=== PATIENT | female | born 1990 | race Caucasian/White ===

== ENCOUNTER 2017-09-06 11:43 | Outpatient (CLI) | payer MEDICAID ==
[2017-09-06 19:17] LABS: BASOPHILS % (AUTO) 0.2 %; EOSINOPHILS # (AUTO) 0.1 10^3/uL (0.0-0.7); EOSINOPHILS % (AUTO) 1.8 %; HGB - HEMOGLOBIN 13.9 g/dL (12.0-16.0); LYMPHOCYTES # (AUTO) 1.8 10^3/uL (1.5-3.5); LYMPHOCYTES % (AUTO) 37.5 %; MEAN CORPUSCULAR HEMOGLOBIN 27.9 pg (27.0-31.0); MEAN CORPUSCULAR HGB CONC 32.9 g/dL (32.0-36.0); MEAN CORPUSCULAR VOLUME 84.9 fL (81.0-99.0); MEAN PLATELET VOLUME 8.7 fL (7.9-10.8); MONOCYTES # (AUTO) 0.3 10^3/uL (0.0-1.0); MONOCYTES % (AUTO) 6.3 %; NEUTROPHILS # (AUTO) 2.6 10^3/uL (1.5-6.6); NEUTROPHILS % (AUTO) 54.2 %; PLT - PLATELET COUNT 246 10^3/uL (130-450); RED BLOOD COUNT 4.97 10^6/uL (4.20-5.40); RED CELL DISTRIBUTION WIDTH 13.4 % (12.0-15.0); WHITE BLOOD COUNT 4.8 x10^3/uL (4.8-10.8)
[2017-09-06 19:23] LABS: HB2 TOTAL 15.5 g/dL; HEMOGLOBIN A1C 1.44 g/dL; HEMOGLOBIN A1C % 10.7 % (4.6-6.2)
[2017-09-06 19:24] LABS: ALBUMIN 3.6 g/dL (3.2-5.5); ALBUMIN/GLOBULIN RATIO 1.1 (1.0-2.2); ALKALINE PHOSPHATASE 73 IU/L (42-121); ALT ALANINE AMINOTRANSFERASE 24 IU/L (10-60); AST ASPARTATE AMINOTRANSFERASE 24 IU/L (10-42); BILIRUBIN,TOTAL 0.6 mg/dL (0.2-1.0); BUN - BLOOD UREA NITROGEN 12 mg/dL (6-20); CALCIUM 8.6 mg/dL (8.5-10.3); CARBON DIOXIDE - CO2 23 mmol/L (21-32); CHLORIDE 102 mmol/L (101-111); CHOL/HDL RATIO 4.5 (<4.4); CHOLESTEROL 191 mg/dL; CREATININE 0.4 mg/dL (0.4-1.0); GFR - MDRD 190 (>89); GLUCOSE 247 mg/dL (70-100); HDL CHOLESTEROL 42 mg/dL; LDL CHOLESTEROL,CALCULATED 116 mg/dL; LDL/HDL RATIO 2.8 (<4.4); SODIUM 133 mmol/L (135-145); TOTAL PROTEIN 6.9 g/dL (6.7-8.2); VLDL CHOLESTEROL 33 mg/dL
== END 2017-09-06 11:44 | disposition home or self-care (01) ==
LOC: LAB.N 11:43
PROVIDERS: ATTEND Nurse Practitioner Gerontology
DX: Z13.9 Encounter for screening, unspecified (principal); E66.01 Morbid (severe) obesity due to excess calories
CPT/HCPCS: 36415; 80053; 80061; 82043; 83036; 83721; 84443; 85025

== ENCOUNTER 2017-12-04 02:05 | Emergency (ER) | payer MEDICAID ==
--- NOTE | 2017-12-04 02:08 | ED Physician Documentation ---
PD HPI LOWER EXT INJURY - Stated complaint Stated Complaint: FALL,R ANKLE PX - History obtained from History obtained from: Patient - History of Present Illness PD HPI LOW EXT INJURY LOCATION: Right, Lower leg, Ankle Type of injury: Fall (slipped on last few steps of stairway and fell, twisting right ankle and striking upper torrez on right.) Where injury occurred: Home Timing - onset: Today Timing - details: Abrupt onset, Still present Worsened by: Moving, Palpating Associated symptoms: Swelling. No: Weakness, Numbness Contributing factors: No: Anticoagulated Similar symptoms before: Has not had sx before Recently seen: Not recently seen Review of Systems Constitutional: denies: Fever Nose: denies: Rhinorrhea / runny nose, Congestion Throat: denies: Sore throat Respiratory: denies: Cough GI: denies: Abdominal Pain, Nausea, Vomiting Musculoskeletal: reports: Other (pain at right knee and upper lower leg) Neurologic: denies: Focal weakness, Numbness, Altered mental status, Headache, Head injury PD PAST MEDICAL HISTORY - Past Medical History Cardiovascular: None Respiratory: None Endocrine/Autoimmune: Type 2 diabetes Musculoskeletal: None - Past Surgical History Past 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 - Present Medications Home Medications: Ambulatory Orders Medication Instructions Recorded Confirmed Chlorhexidine Gluconate [Hibiclens] 10 ml TP DAILY #473 ml 08/14/15 Hydrocodone/Acetaminophen [[place] 1 each PO Q6H PRN #20 tablet 08/14/15 5-325 Tablet] Insulin Glargine,Hum.rec.anlog 08/14/15 08/14/15 [Lantus Solostar] Insulin Glargine,Hum.rec.anlog 15 unit SQ DAILY #1 bottle 08/14/15 [Lantus] Insulin Lispro [Humalog] 15 unit SUBQ TID #1 bottle 08/14/15 Sulfamethoxazole/Trimethoprim 1 each PO BID #14 tablet 08/14/15 [Bactrim Ds Tablet] Naproxen 375 mg PO BID #20 tablet 12/04/17 Tramadol HCl 50 mg PO Q6H PRN #20 tablet 12/04/17 - Allergies Allergies/Adverse Reactions: Allergies Allergy/AdvReac Type Severity Reaction Status Date / Time cefaclor [From [facility]] Allergy Unknown Verified 12/04/17 02:16 Penicillins Allergy Unknown Verified 12/04/17 02:16 - Social History Does the pt smoke?: No Smoking Status: Never smoker Does the pt drink ETOH?: Yes Does the pt have substance abuse?: No - Immunizations Immunizations are current?: Yes PD ED PE NORMAL - Vitals Vital signs reviewed: Yes - General General: Alert and oriented X 3, No acute distress, Well developed/nourished - Back Back: No CVA TTP, No spinal TTP - Derm Derm: Normal color, Warm and dry, No rash - Extremities Extremities: Other (right upper torrez with local tnedrness and bruising. The knee is tender anteriorly and does not have effusion nor obvious deformity. Ligament testing is limited due to pain but no gross laxity. ) - Neuro Neuro: Alert and oriented X 3, No motor deficit, No sensory deficit, Normal speech Results - Vitals Vitals: Oxygen O2 Source Room air - Rads (name of study) tib/fib and ankle right Radiology: Prelim report reviewed, EMP read contemporaneously (no fractures) PD MEDICAL DECISION MAKING - ED course Complexity details: reviewed results, considered differential, d/w patient Departure - Departure Disposition: 01 Home, Self Care Clinical Impression: Fall down steps Qualifiers: Encounter type: initial encounter Qualified Code(s): W10.8XXA - Fall (on) (from ) other stairs and steps, initial encounter Contusion, lower leg Qualifiers: Encounter type: initial encounter Laterality: right Qualified Code(s): S80.11XA - Contusion of right lower leg, initial encounter Ankle sprain Qualifiers: Encounter type: initial encounter Involved ligament of ankle: other ligament Laterality: right Qualified Code(s): S93.491A - Sprain of other ligament of right ankle, initial encounter Condition: Stable Record reviewed to determine appropriate education?: Yes Instructions: ED Sprain Ankle Follow-Up: Karla Hendrickson ARNP [Primary Care Provider] - Prescriptions: Naproxen 375 mg PO BID #20 tablet Tramadol HCl 50 mg PO Q6H PRN #20 tablet PRN Reason: Pain Comments: Us the ankle brace when up and around for the next couple of weeks until fully improved. Crutches initially to help with partial weightbearing. Progress weightbearing as able. I do not see any fractures on x-ray. The ligament and muscle injuries (sprain) can still take a week or 2 or more to get better. Naproxen twice daily for pain. Add Tylenol or tramadol if needed for pains. Recheck if not improving well over the next week. Discharge Date/Time: 12/04/17 04:20
[2017-12-04] MEDS ORDERED: oxyCOD/ACETAMIN 5 MG/325 MG TABLET PO STA (02:49)
[2017-12-04] MEDS ORDERED: IBUPROFEN 600 MG TABLET PO STA (02:49)
--- NOTE | 2017-12-04 03:40 | XRAY Report ---
EXAM: RIGHT ANKLE RADIOGRAPHY EXAM DATE: 12/04/2017 03:21 AM. CLINICAL HISTORY: Pain after injury. COMPARISON: None. TECHNIQUE: 3 views. FINDINGS: Bones: No fracture seen. Joints: No dislocation. Mortise appears intact. No ankle joint effusion seen. Soft Tissues: Soft tissue swelling. IMPRESSION: 1. No acute osseous abnormality seen. [facility] Referring Provider Line: [phone] SITE ID: [id number]
--- NOTE | 2017-12-04 03:40 | XRAY Preliminary Report ---
Exam: XR ANKLE 3 VIEW RT IMPRESSION: 1. No acute osseous abnormality seen. [facility] SITE ID: [id number]
--- NOTE | 2017-12-04 03:41 | XRAY Report ---
EXAM: RIGHT TIBIA/FIBULA RADIOGRAPHY EXAM DATE: 12/04/2017 03:21 AM. CLINICAL HISTORY: Fell few steps, struck torrez/bruised and pain. COMPARISON: None. TECHNIQUE: 2 views. FINDINGS: Bones: No fracture seen. Joints: No dislocation. Joints appear intact as imaged. Soft Tissues: Mild soft tissue swelling. IMPRESSION: 1. No acute osseous abnormality seen. [facility] Referring Provider Line: [phone] SITE ID: [id number]
--- NOTE | 2017-12-04 03:41 | XRAY Preliminary Report ---
Exam: XR TIB/FIB RT IMPRESSION: 1. No acute osseous abnormality seen. [facility] SITE ID: [id number]
[2017-12-04 04:07] VITALS: BP 125/79
== END 2017-12-04 04:20 | disposition home or self-care (01) ==
LOC: ED 02:05
DX: S80.11XA Contusion of right lower leg, initial encounter (principal); S93.491A Sprain of other ligament of right ankle, initial encounter; W10.9XXA Fall (on) (from) unspecified stairs and steps, initial encounter; Y92.009 Unspecified place in unspecified non-institutional (private) residence as the place of occurrence of the external cause; X50.9XXA Other and unspecified overexertion or strenuous movements or postures, initial encounter; E11.9 Type 2 diabetes mellitus without complications; Z79.4 Long term (current) use of insulin
CPT/HCPCS: 73590; 73610; 99283; A9270

== ENCOUNTER 2018-02-15 00:46 | Emergency (ER) | payer MEDICAID ==
[2018-02-15] MEDS ORDERED: CLINDAMYCIN 150 MG CAPSULE PO STA (01:19)
[2018-02-15] MEDS ORDERED: IBUPROFEN 600 MG TABLET PO STA (01:21)
[2018-02-15] MEDS ORDERED: MUPIROCIN 2% OINT 1 GM TOP STA (01:21)
--- NOTE | 2018-02-15 01:22 | ED Physician Documentation ---
PD HILL HEENT - Stated complaint Stated Complaint: LT EAR PAIN,BUMP BEHIND EAR - Chief complaint Chief Complaint: Heent - History obtained from History obtained from: Patient, Friend - History of Present Illness Timing - onset: How many days ago (2) Timing - details: Gradual onset, Still present Location: Right ear Associated symptoms: No: Fever, Congestion Similar symptoms before: Work up / diagnostics Recently seen: Not recently seen - Additional information Additional information: Patient is a 27 year old female presenting to the emergency department for ear pain, a spot on her nose and a spot under her arm. Patient states that it has been going on for the last couple of days and has become progressively worse. Patient does have a history of mrsa. 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 - Present Medications Home Medications: Ambulatory Orders Medication Instructions Recorded Confirmed Chlorhexidine Gluconate [Hibiclens] 10 ml TP DAILY #473 ml 08/14/15 Hydrocodone/Acetaminophen [[place] 1 each PO Q6H PRN #20 tablet 08/14/15 5-325 Tablet] Insulin Glargine,Hum.rec.anlog 08/14/15 08/14/15 [Lantus Solostar] Insulin Glargine,Hum.rec.anlog 15 unit SQ DAILY #1 bottle 08/14/15 [Lantus] Insulin Lispro [Humalog] 15 unit SUBQ TID #1 bottle 08/14/15 Sulfamethoxazole/Trimethoprim 1 each PO BID #14 tablet 08/14/15 [Bactrim Ds Tablet] Naproxen 375 mg PO BID #20 tablet 12/04/17 Tramadol HCl 50 mg PO Q6H PRN #20 tablet 12/04/17 Clindamycin HCl [Clindamycin 300MG 300 mg PO Q6H 7 Days capsule 02/15/18 CAP] Mupirocin 1 applic TP BID #1 oint...g. 02/15/18 - Allergies Allergies/Adverse Reactions: Allergies Allergy/AdvReac Type Severity Reaction Status Date / Time cefaclor [From [facility]] Allergy Unknown Verified 12/04/17 02:16 Penicillins Allergy Unknown Verified 12/04/17 02:16 - Social History Does the pt smoke?: No Smoking Status: Never smoker Does the pt drink ETOH?: Yes Does the pt have substance abuse?: No - Immunizations Immunizations are current?: Yes - POLST Patient has POLST: No PD ED PE NORMAL - Vitals Vital signs reviewed: Yes - General General: Alert and oriented X 3 - HEENT HEENT: Atraumatic - Cardiac Cardiac: RRR - Respiratory Respiratory: No respiratory distress - Abdomen Abdomen: Non distended - Neuro Eye Opening: Spontaneous PD ED PE EXPANDED - HEENT HEENT: Other (small erythematous lesions in left nare and right ear) - Derm Derm: Rash SKin visual: 1 - rash (erythema and induration of left axilla without abscess or fluid collection) Results - Vitals Vitals: Vital Signs - 24 hr 02/15/18 00:50 Temperature 36.7 C Heart Rate 97 Respiratory 18 Rate Blood Pressure 143/91 H O2 Saturation 99 Oxygen O2 Source Room air PD MEDICAL DECISION MAKING - ED course Complexity details: reviewed old records, reviewed results, re-evaluated patient , considered differential, d/w patient ED course: Patient was seen and examined at bedside. patient's findings were infectious in nature, but there was no drainable fluid collection. Due to the history of mrsa patient was started on clindamycin and mupiricun. Patient was also treated with topical lidocaine for her ear. patient was given detailed discharge and follow up instructions and was stable for outpatient follow up. - Sepsis Event Vital Signs: Vital Signs - 24 hr 02/15/18 00:50 Temperature 36.7 C Heart Rate 97 Respiratory 18 Rate Blood Pressure 143/91 H O2 Saturation 99 Oxygen O2 Source Room air Departure - Departure Disposition: 01 Home, Self Care Clinical Impression: Cellulitis Condition: Good Instructions: ED Cellulitis Facial Follow-Up: Karla Hendrickson ARNP [Primary Care Provider] - Within 3 Days Prescriptions: Clindamycin HCl [Clindamycin 300MG CAP] 300 mg PO Q6H 7 Days capsule Mupirocin 1 applic TP BID #1 oint...g. Comments: Your symptoms today are being caused by a skin infection, and with your history we need to cover for mrsa. you have been prescribed an oral antibiotic, clindamycin that you will take four times a day. You have also been prescribed a topical antibiotic that you should apply at least twice a day. You should follow up with your doctor this week for wound check if the areas are not improving. you should also apply warm compresses to the area. you can take motrin or tylenol as needed for pain. you may return to the emergency department at any time for new, worsening or uncontrollable symptoms.
[2018-02-15] MEDS ORDERED: LIDOCAINE VISCOUS 2% 15 ML UDC MM STA (01:35)
[2018-02-15 01:48] VITALS: BP 132/74
== END 2018-02-15 01:45 | disposition home or self-care (01) ==
LOC: ED 00:46
DX: J34.0 Abscess, furuncle and carbuncle of nose (principal); H60.11 Cellulitis of right external ear; L03.112 Cellulitis of left axilla; E11.9 Type 2 diabetes mellitus without complications; Z79.4 Long term (current) use of insulin; Z86.14 Personal history of Methicillin resistant Staphylococcus aureus infection
CPT/HCPCS: 99283; A9270

== ENCOUNTER 2018-03-08 02:51 | Emergency (ER) | payer MEDICAID ==
[2018-03-08 03:20] LABS: BILIRUBIN,URINE NEGATIVE (NEGATIVE); GLUCOSE, URINE (UA) >=1000 mg/dL (NEGATIVE); KETONES,URINE (UA) 15 mg/dL (NEGATIVE); LEUKOCYTE ESTERASE, URINE NEGATIVE (NEGATIVE); NITRITE,URINE NEGATIVE (NEGATIVE); OCCULT BLOOD,URINE LARGE (NEGATIVE); PH,URINE 5.5 PH (5.0-7.5); PROTEIN,URINE NEGATIVE (NEGATIVE); UROBILINOGEN,URINE 0.2 (NORMAL) E.U./dL (NORMAL)
[2018-03-08 03:32] LABS: CLARITY,URINE HAZY (CLEAR); HCG UR QUAL NEGATIVE
[2018-03-08 03:44] LABS: BACTERIA,URINE Few /HPF (None Seen); RBC,URINE 0-5 /HPF (0-5); SQUAMOUS EPITHELIAL CELL,UR MANY Squamous (<= Few)
--- NOTE | 2018-03-08 04:13 | ED Physician Documentation ---
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 No: Ovarian cysts Similar symptoms before: Has not had sx before Recently seen: Not recently seen - Additional information Additional information: 27-year-old female who has had an issue with MRSA in her [place] with the of her most recent child last year has developed some dark blood per vagina. She became concerned with this because this was the same color of dark fluid that she expressed from her breast about a month ago when she bruised it. She denies vaginal discharge and she denies urinary urgency frequency or dysuria. She does have some pelvic cramping similar to what she has had previously with menstruation. She has normal regular menstruation about 30 days on a cycle and she had her last menstruation on 02/23/2018. She states this was a normal 3 day menstruation. She did google the dark blood and has become concerned. Review of Systems Constitutional: denies: Fever Eyes: denies: Decreased vision Ears: denies: Ear pain Nose: denies: Congestion Throat: denies: Sore throat Respiratory: denies: Cough GI: denies: Vomiting : reports: Discharge. 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: section, Tubal ligation - Present Medications Home Medications: Ambulatory Orders Medication Instructions Recorded Confirmed Chlorhexidine Gluconate [Hibiclens] 10 ml TP DAILY #473 ml 08/14/15 Hydrocodone/Acetaminophen [[place] 1 each PO Q6H PRN #20 tablet 08/14/15 5-325 Tablet] Insulin Glargine,Hum.rec.anlog 08/14/15 08/14/15 [Lantus Solostar] Insulin Glargine,Hum.rec.anlog 15 unit SQ DAILY #1 bottle 08/14/15 [Lantus] Insulin Lispro [Humalog] 15 unit SUBQ TID #1 bottle 08/14/15 Sulfamethoxazole/Trimethoprim 1 each PO BID #14 tablet 08/14/15 [Bactrim Ds Tablet] Naproxen 375 mg PO BID #20 tablet 12/04/17 Tramadol HCl 50 mg PO Q6H PRN #20 tablet 12/04/17 Clindamycin HCl [Clindamycin 300MG 300 mg PO Q6H 7 Days capsule 02/15/18 CAP] Mupirocin 1 applic TP BID #1 oint...g. 02/15/18 - Allergies Allergies/Adverse Reactions: Allergies Allergy/AdvReac Type Severity Reaction Status Date / Time cefaclor [From [facility]] Allergy Unknown Verified 03/08/18 03:04 Penicillins Allergy Unknown Verified 03/08/18 03:04 - Social History Does the pt smoke?: No Smoking Status: Never smoker Does the pt drink ETOH?: Yes Does the pt have substance abuse?: No - Immunizations Immunizations are current?: Yes - POLST Patient has POLST: No PD ED PE NORMAL - Vitals Vital signs reviewed: Yes (hypertensive mild ) - General General: Alert and oriented X 3, No acute distress, Well developed/nourished - HEENT HEENT: Atraumatic, PERRL - Neck Neck: Supple, no meningeal sign - Cardiac Cardiac: RRR, No murmur - Respiratory Respiratory: No respiratory distress, Clear bilaterally - Abdomen Abdomen: Soft, Non tender - Back Back: No CVA TTP, No spinal TTP - Derm Derm: Normal color, Warm and dry, No rash - Extremities Extremities: No deformity, No edema - Neuro Neuro: Alert and oriented X 3, 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, No motor deficit, No sensory deficit, Normal speech Eye Opening: Spontaneous Motor: Obeys Commands Verbal: Oriented GCS Score: 15 - Psych Psych: Normal mood, Normal affect Results - Vitals Vitals: Vital Signs - 24 hr 03/08/18 03/08/18 03:02 04:28 Temperature 36.3 C L Heart Rate 88 Respiratory 17 17 Rate Blood Pressure 155/97 H 142/93 H O2 Saturation 99 Oxygen O2 Source Room air - Labs Labs: Laboratory Tests 03/08/18 03:00 Urine Color YELLOW Urine Clarity HAZY Urine pH 5.5 Ur Specific [place] >=1.030 H Urine Protein NEGATIVE Urine Glucose (UA) >=1000 H Urine Ketones 15 H Urine Occult Blood LARGE H Urine Nitrite NEGATIVE Urine Bilirubin NEGATIVE Urine Urobilinogen 0.2 (NORMAL) Ur Leukocyte Esterase NEGATIVE Urine RBC 0-5 Urine WBC 0-3 Ur Squamous Epith Cells MANY Squamous H Urine Bacteria Few Ur Microscopic Review INDICATED Urine Culture Comments NOT INDICATED Urine HCG, Qual NEGATIVE PD MEDICAL DECISION MAKING - ED course Complexity details: reviewed results, re-evaluated patient, considered differential, d/w patient, d/w family ED course: 27-year-old female with abnormal uterine bleeding only a scant amount of dark appearing blood. She has been coming quite concerned about these symptoms which do not appear life-threatening. She has no evidence of urinary tract infection she is not she has no evidence of infection. She is referred to E[employer] COATINGS INSTALLER for further attention as needed. - Sepsis Event Vital Signs: Vital Signs - 24 hr 03/08/18 03/08/18 03:02 04:28 Temperature 36.3 C L Heart Rate 88 Respiratory 17 17 Rate Blood Pressure 155/97 H 142/93 H O2 Saturation 99 Oxygen O2 Source Room air Departure - Departure Disposition: 01 Home, Self Care Clinical Impression: Uterine bleeding, dysfunctional Condition: Stable Instructions: ED Bleed Irregular Vaginal Follow-Up: Cristofer Roldan PA-C [Primary Care Provider] - [facility] [Provider Group] Discharge Date/Time: 03/08/18 04:29
[2018-03-08 04:29] VITALS: BP 142/93
== END 2018-03-08 04:29 | disposition home or self-care (01) ==
LOC: ED 02:51
DX: N93.8 Other specified abnormal uterine and vaginal bleeding (principal); E11.9 Type 2 diabetes mellitus without complications; Z79.4 Long term (current) use of insulin
CPT/HCPCS: 81001; 81003; 81025; 87086; 99282; 99283

== ENCOUNTER 2018-06-05 20:40 | Emergency (ER) | payer MEDICAID ==
[2018-06-05 20:47] VITALS: BP 132/89
[2018-06-05] MEDS ORDERED: CIPROFLOXACIN 250 MG TABLET PO STA (20:58)
[2018-06-05] MEDS ORDERED: HYDROcod/ACET 5/325 Prepack 4 PO STA (20:58)
[2018-06-05] MEDS ORDERED: metFORMIN 500 MG TABLET PO STA (20:58)
[2018-06-05] MEDS ORDERED: HYDROcod/ACETAM 5/325 MG TABLET PO STA (20:58)
[2018-06-05] MEDS ORDERED: NEOMYCIN/POLYMYX/HC OTIC DROPS RIGHTEAR STA (20:58)
--- NOTE | 2018-06-05 21:04 | ED Physician Documentation ---
PD HPI HEENT - Stated complaint Stated Complaint: R EAR PX/DRAINAGE - Chief complaint Chief Complaint: Heent - History obtained from History obtained from: Patient - History of Present Illness Timing - onset: Other (27-year-old with history of type 2 diabetes, currently untreated because she says she had labs done with her doctor and never got a call back so she assumed her blood sugar was okay. Over the last couple days he developed increasingly painful right ear with drainage, no URI symptoms or fever.) Review of Systems Constitutional: denies: Fever, Chills Eyes: denies: Loss of vision, Decreased vision Ears: reports: Loss of hearing, Ear pain, Drainage/discharge. 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, Tubal ligation - Present Medications Home Medications: Ambulatory Orders Medication Instructions Recorded Confirmed Blood Sugar Diagnostic [Glucometer 1 each ACHS #120 strip 06/05/18 Strips] Blood-Glucose Meter [Glucometer] 1 each ONCE #1 each 06/05/18 Ciprofloxacin HCl [Cipro] 500 mg PO BID #20 tablet 06/05/18 Hydrocodone/Acetaminophen 1 - 2 each PO Q6H PRN #14 tablet 06/05/18 [Hydrocodon-Acetaminophen 5-325] Lancets 1 each ACHS #120 each 06/05/18 Neomycin/Polymyx/Hc Otic Drops 4 drops OT TID #1 bottle 06/05/18 [Cortisporin Ear Susp] metFORMIN [Glucophage] 500 mg PO BIDWM #60 tablet 06/05/18 - Allergies Allergies/Adverse Reactions: Allergies Allergy/AdvReac Type Severity Reaction Status Date / Time cefaclor [From [facility]] Allergy Unknown Verified 06/05/18 20:56 Penicillins Allergy Unknown Verified 06/05/18 20:56 - Social History Does the pt smoke?: No Smoking Status: Never smoker Does the pt drink ETOH?: Yes Does the pt have substance abuse?: No - Immunizations Immunizations are current?: Yes - POLST Patient has POLST: No PD ED PE NORMAL - Vitals Vital signs reviewed: Yes - General General: Alert and oriented X 3, No acute distress - HEENT HEENT: Other (She has external otitis on the right, but the canal is wide open, the TM is normal and there is no mastoid tenderness.) - Neck Neck: Supple, no meningeal sign, No bony TTP - Neuro Neuro: Alert and oriented X 3, Normal speech - Psych Psych: Normal mood, Normal affect Results - Vitals Vitals: Vital Signs - 24 hr 06/05/18 20:40 Temperature 36.5 C Heart Rate 102 H Respiratory 16 Rate Blood Pressure 132/89 H O2 Saturation 97 Oxygen O2 Source Room air - Labs Labs: Laboratory Tests 06/05/18 20:52 POC Whole Bld Glucose 340 H PD MEDICAL DECISION MAKING - ED course ED course: This is a type II diabetic, currently uncontrolled with a blood sugar of 340 on no meds with external otitis. Given the underlying diabetes it is indicated to treat with oral antibiotics as well as topical and she is placed on Cortisporin and Cipro. We will also restart her metformin and she is to follow-up with her physician in a few days for blood sugar recheck. Departure - Departure Disposition: Home, Self Care Clinical Impression: Uncontrolled diabetes mellitus Qualifiers: Diabetes mellitus type: type 2 Glycemic state: with hyperglycemia Qualified Code(s): E11.65 - Type 2 diabetes mellitus with hyperglycemia External otitis of right ear Qualifiers: Otitis externa type: other infective Chronicity: acute Qualified Code(s): H60.391 - Other infective otitis externa, right ear Condition: Good Record reviewed to determine appropriate education?: Yes Instructions: ED Hyperglycemia Diabetic, ED Otitis Externa Prescriptions: Blood Sugar Diagnostic [Glucometer Strips] 1 each ACHS #120 strip Blood-Glucose Meter [Glucometer] 1 each MC ONCE #1 each Ciprofloxacin HCl [Cipro] 500 mg PO BID #20 tablet Hydrocodone/Acetaminophen [Hydrocodon-Acetaminophen 5-325] 1 - 2 each PO Q6H PRN #14 tablet PRN Reason: pain Lancets 1 each MC ACHS #120 each metFORMIN [Glucophage] 500 mg PO BIDWM #60 tablet Neomycin/Polymyx/Hc Otic Drops [Cortisporin Ear Susp] 4 drops OT TID #1 bottle Comments: As discussed, it is imperative to get control of your blood sugars for long-term health and for resolution of this current issue. Follow-up with your doctor in the next 2-3 days for blood sugar recheck and ongoing medication management. Return if worse or if new symptoms develop. Do not drink or drive while taking narcotic pain medication. Note that many narcotic pain relievers also contain Tylenol/acetaminophen. Please ensure that your total dose of acetaminophen from all sources does not exceed 3 g (3000 mg) per day. You may get constipated while on this medication. Take a stool softener such as Colace twice a day while you are on it. Also add an dnwg-vjg-lpeyniz laxative such as senna or MiraLAX on any day that you do not have a bowel movement. If you received a narcotic pain medication or sedative while in the emergency department, do not drive for the next 24 hours. Your blood pressure was elevated today on check into the emergency department. This does not mean that you have hypertension, it is a common phenomenon to come to the emergency department and have elevated blood pressure. I recommend that you see your primary care physician within the week to have it rechecked when you are feeling better.
== END 2018-06-05 21:17 | disposition home or self-care (01) ==
LOC: ED 20:40
DX: H60.391 Other infective otitis externa, right ear (principal); E11.65 Type 2 diabetes mellitus with hyperglycemia; R03.0 Elevated blood-pressure reading, without diagnosis of hypertension
CPT/HCPCS: 99283; A9270

== ENCOUNTER 2018-07-06 13:28 | Outpatient (CLI) | payer MEDICAID ==
[2018-07-06 19:04] LABS: BASOPHILS % (AUTO) 0.2 %; EOSINOPHILS # (AUTO) 0.1 10^3/uL (0.0-0.7); HGB - HEMOGLOBIN 14.5 g/dL (12.0-16.0); LYMPHOCYTES # (AUTO) 1.8 10^3/uL (1.5-3.5); LYMPHOCYTES % (AUTO) 25.5 %; MEAN CORPUSCULAR HEMOGLOBIN 29.4 pg (27.0-31.0); MEAN CORPUSCULAR HGB CONC 33.1 g/dL (32.0-36.0); MEAN CORPUSCULAR VOLUME 88.9 fL (81.0-99.0); MEAN PLATELET VOLUME 8.6 fL (7.9-10.8); MONOCYTES # (AUTO) 0.4 10^3/uL (0.0-1.0); MONOCYTES % (AUTO) 5.3 %; NEUTROPHILS # (AUTO) 4.7 10^3/uL (1.5-6.6); PLT - PLATELET COUNT 281 10^3/uL (130-450); RED BLOOD COUNT 4.92 10^6/uL (4.20-5.40); RED CELL DISTRIBUTION WIDTH 12.2 % (12.0-15.0); WHITE BLOOD COUNT 6.9 x10^3/uL (4.8-10.8)
[2018-07-06 19:33] LABS: HB2 TOTAL 15.8 g/dL; HEMOGLOBIN A1C 1.37 g/dL; HEMOGLOBIN A1C % 10.1 % (4.6-6.2)
[2018-07-06 20:17] LABS: CALCIUM 9.2 mg/dL (8.5-10.3); CREATININE 0.7 mg/dL (0.4-1.0)
== END 2018-07-06 13:29 | disposition home or self-care (01) ==
LOC: LAB.N 13:28
PROVIDERS: ATTEND Physician Assistant Medical
DX: E11.65 Type 2 diabetes mellitus with hyperglycemia (principal)
CPT/HCPCS: 36415; 80048; 83036; 85025

== ENCOUNTER 2019-01-30 13:48 | Outpatient (CLI) | payer MEDICAID ==
--- NOTE | 2019-01-31 19:28 | XRAY Report ---
Reason: HAND PAIN Procedure Date: 01/30/2019 Accession Number: [id number] / [id number] Procedure: XRN - Hand 3 View RT CPT Code: FULL RESULT: EXAM: RIGHT HAND RADIOGRAPHY EXAM DATE: 01/30/2019 02:03 PM. CLINICAL HISTORY: Hand pain following a fall. Ground-level fall down 3 steps, pain at the right third and fourth digit. COMPARISON: None. TECHNIQUE: 3 views. FINDINGS: Bones: No acute displaced fractures or suspicious bony lesion. Joints: No dislocation. Soft Tissues: No significant soft tissue swelling. IMPRESSION: No acute osseous abnormality demonstrated. [facility]
== END 2019-01-30 13:49 | disposition home or self-care (01) ==
LOC: DI.N 13:48
PROVIDERS: ATTEND Physician Assistant Medical
DX: M79.641 Pain in right hand (principal)

== ENCOUNTER 2019-06-03 18:47 | Emergency (ER) | payer MEDICAID ==
[2019-06-03] MEDS ORDERED: HYDROcod/ACETAM 5/325 MG TABLET PO STA (20:19)
[2019-06-03] MEDS ORDERED: DOXYCYCLINE 100 MG TABLET PO STA (20:19)
--- NOTE | 2019-06-03 20:29 | ED Physician Documentation ---
History of Present Illness - Stated complaint Stated Complaint: RT EAR ACHE/DRAINAGE - Chief complaint Chief Complaint: Heent - History obtained from History obtained from: Patient - History of Present Illness Timing: How many days ago (2-3) Pain level max: 8 Pain level now: 8 Improved by: Nothing Worsened by: Nothing - Additonal information Additional information: R ear pain, states green drainage earlier. 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 : None HEENT: None Psych: None Musculoskeletal: None Derm: None - Past Surgical History Past Surgical History: Yes General: Other /DEHYDROGENATION OPERATOR: section, Tubal ligation HEENT: Myringotomy (tubes) - Present Medications Home Medications: Ambulatory Orders Medication Instructions Recorded Confirmed Blood Sugar Diagnostic [Glucometer 1 each ACHS #120 strip 06/05/18 Strips] Blood-Glucose Meter [Glucometer] 1 each ONCE #1 each 06/05/18 Ciprofloxacin HCl [Cipro] 500 mg PO BID #20 tablet 06/05/18 Hydrocodone/Acetaminophen 1 - 2 each PO Q6H PRN #14 tablet 06/05/18 [Hydrocodon-Acetaminophen 5-325] Lancets 1 each ACHS #120 each 06/05/18 Neomycin/Polymyx/Hc Otic Drops 4 drops OT TID #1 bottle 06/05/18 [Cortisporin Ear Susp] metFORMIN [Glucophage] 500 mg PO BIDWM #60 tablet 06/05/18 Ciprofloxacin/Hydrocortisone 3 ml OT BID #1 bottle 06/03/19 [Cipro Hc Otic Suspension] Doxycycline Hyclate 100 mg PO BID #20 capsule 06/03/19 Hydrocodone/Acetaminophen 1 - 2 each PO Q6H PRN #14 tablet 06/03/19 [Hydrocodon-Acetaminophen 5-325] - Allergies Allergies/Adverse Reactions: Allergies Allergy/AdvReac Type Severity Reaction Status Date / Time [facility] Allergy Unknown Verified 06/05/18 20:56 Penicillins Allergy Unknown Verified 06/05/18 20:56 - Social History Does the pt smoke?: Yes Smoking Status: Current every day smoker Does the pt drink ETOH?: Yes Does the pt have substance abuse?: No - Immunizations Immunizations are current?: Yes - POLST Patient has POLST: No PD ED PE NORMAL - Vitals Vital signs reviewed: Yes - General General: Alert and oriented X 3, Other (Appears uncomfortable) - HEENT HEENT: Pharynx benign, Other (Left ear and TM are normal. Right TM is erythematous, perforated with a small amount of drainage. The right external canal is also swollen and erythematous with white exudate.) - Neck Neck: Supple, no meningeal sign - Cardiac Cardiac: RRR, Strong equal pulses - Respiratory Respiratory: No respiratory distress, Clear bilaterally - Derm Derm: Warm and dry - Neuro Neuro: Alert and oriented X 3 - Psych Psych: Normal mood, Normal affect Results - Vitals Vitals: Vital Signs - 24 hr 06/03/19 06/03/19 18:52 20:38 Temperature 36.8 C 36.4 C L Heart Rate 99 85 Respiratory 16 18 Rate Blood Pressure 139/84 H 143/94 H O2 Saturation 98 96 Oxygen O2 Source Room air PD MEDICAL DECISION MAKING - ED course Complexity details: considered differential, d/w patient ED course: Patient with a right acute otitis media with perforation. Also has a right acute otitis externa. Will place on oral antibiotics and topical antibiotics. Will prescribe pain medication for home. Patient is tearful in the emergency department. Patient counseled regarding signs and symptoms for which I believe and urgent re-evaluation would be necessary. Patient with good understanding of and agreement to plan and is comfortable going home at this time This document was made in part using voice recognition software. While efforts are made to proofread this document, sound alike and grammatical errors may occur. Departure - Departure Disposition: 01 Home, Self Care Clinical Impression: External otitis of right ear Qualifiers: Otitis externa type: unspecified type Chronicity: acute Qualified Code(s): H60.501 - Unspecified acute noninfective otitis externa, right ear Otitis media, acute with perforation of eardrum Qualifiers: Laterality: right Recurrence: non-recurrent Qualified Code(s): H66.011 - Acute suppurative otitis media with spontaneous rupture of ear drum, right ear Condition: Good Instructions: ED Otitis Media Acute Adult, ED Otitis Externa Follow-Up: Cristofer Roldan PA-C [Primary Care Provider] - Within 1 week Prescriptions: Ciprofloxacin/Hydrocortisone [Cipro Hc Otic Suspension] 3 ml OT BID #1 bottle Doxycycline Hyclate 100 mg PO BID #20 capsule Hydrocodone/Acetaminophen [Hydrocodon-Acetaminophen 5-325] 1 - 2 each PO Q6H PRN #14 tablet PRN Reason: pain Comments: Use the antibiotics as prescribed. Return if you worsen. Do not drink alcohol or drive while on narcotic pain medicine. Note that many narcotic pain relievers also contain tylenol/acetaminophen. Please ensure that your total dose of acetaminophen from all sources does not exceed 3 grams (3000mg) per day. You may constipated on this medication, take a stool softener such as "Colace" twice a day while you are on it. Also recommend a pcnx-[id number]-[id number] laxative such as senna or MiraLAX any day that you do not have a bowel movement. If you received narcotic pain medication in the emergency department, do not drive or operate machinery for the next 24 hours. Discharge Date/Time: 06/03/19 20:39
[2019-06-03 20:39] VITALS: BP 143/94
== END 2019-06-03 20:39 | disposition home or self-care (01) ==
LOC: ED 18:47
DX: H66.011 Acute suppurative otitis media with spontaneous rupture of ear drum, right ear (principal); H60.501 Unspecified acute noninfective otitis externa, right ear; E11.9 Type 2 diabetes mellitus without complications; Z79.84 Long term (current) use of oral hypoglycemic drugs; F17.200 Nicotine dependence, unspecified, uncomplicated
CPT/HCPCS: 99283; 99284; A9270

== ENCOUNTER 2019-07-15 11:21 | Outpatient (CLI) | payer MEDICAID ==
--- NOTE | 2019-07-15 20:51 | Ultrasound Report ---
Reason: RLQ ABDOMINAL PAIN Procedure Date: 07/15/2019 Accession Number: [id number] / [id number] Procedure: US - Abdomen Limited CPT Code: Final Report FULL RESULT: EXAM: ABDOMEN ULTRASOUND LIMITED, RUQ EXAM DATE: 07/15/2019 11:30 AM. CLINICAL HISTORY: RLQ ABDOMINAL PAIN. COMPARISON: None. TECHNIQUE: Real-time scanning was performed with static images obtained. FINDINGS: Limited ultrasound through christina-inferior abdominal wall demonstrate a 2.7 x 1.8 x 3.4 cm focal subcutaneous lesion superior to the c section scar with homogenous internal echoes/debris and peripheral vascularity. Differentials include hematoma, abscess, post surgical seroma. No intraperitoneal extension. IMPRESSION: Limited ultrasound through christina-inferior abdominal wall with a 2.7 x 1.8 x 3.4 cm focal subcutaneous lesion superior to C section scar with homogenous internal echoes/debris and peripheral vascularity. Differentials include hematoma, abscess or post surgical seroma. RADIA
== END 2019-07-15 11:22 | disposition home or self-care (01) ==
LOC: DI 11:21
PROVIDERS: ATTEND Physician Assistant Medical
DX: R10.31 Right lower quadrant pain (principal); R19.00 Intra-abdominal and pelvic swelling, mass and lump, unspecified site
CPT/HCPCS: 76705

== ENCOUNTER 2019-07-21 21:13 | Emergency (ER) | payer MEDICAID ==
[2019-07-21 21:57] LABS: BASOPHILS % (AUTO) 0.2 %; EOSINOPHILS # (AUTO) 0.1 10^3/uL (0.0-0.7); EOSINOPHILS % (AUTO) 2.1 %; HGB - HEMOGLOBIN 14.1 g/dL (12.0-16.0); LYMPHOCYTES # (AUTO) 2.2 10^3/uL (1.5-3.5); LYMPHOCYTES % (AUTO) 38.1 %; MEAN CORPUSCULAR HEMOGLOBIN 28.4 pg (27.0-31.0); MEAN CORPUSCULAR HGB CONC 32.5 g/dL (32.0-36.0); MEAN CORPUSCULAR VOLUME 87.5 fL (81.0-99.0); MEAN PLATELET VOLUME 9.8 fL (7.9-10.8); MONOCYTES # (AUTO) 0.4 10^3/uL (0.0-1.0); MONOCYTES % (AUTO) 7.3 %; PLT - PLATELET COUNT 277 10^3/uL (130-450); RED BLOOD COUNT 4.96 10^6/uL (4.20-5.40); RED CELL DISTRIBUTION WIDTH 12.2 % (12.0-15.0); WHITE BLOOD COUNT 5.8 x10^3/uL (4.8-10.8)
--- NOTE | 2019-07-21 22:05 | ED Physician Documentation ---
PD HPI ABD PAIN - Stated complaint Stated Complaint: ABD PX/NAUSEA - Chief complaint Chief Complaint: Abd Pain - History obtained from History obtained from: Patient - History of Present Illness Timing - onset: How many months ago (2) Timing - details: Gradual onset, Waxing and waning Pain level now: 8 Quality: Pain Location: Other (across lower abdomen, predominantly midline) Improved by: Laying still Worsened by: Eating, Palpation, Other (leaning forward, ambulating) Associated symptoms: Nausea, Vomiting. No: Fever, Diarrhea, Constipation Recently seen: Clinic - Additional information Additional information: c/o 2 months of gradually worsening and frequent midline lower abdominal pain. Saw PMD a week ago and had outpatient US which showed 2.7 x 1.7 x 3.4 cm subcutaneous lesion superior to C section scar with homogenous internal echoes/debris and peripheral vascularity. She followed up with PMD yesterday, was prescribed vicodin and referred to surgeon. She is scheduled to meet with surgeon in 4 days but presents due to severe abdominal pain. 2 years ago, she had a with extensive complications including MRSA infection that required RERE drain, PICC line, and eventually opened, requiring months before the tract healed Review of Systems Constitutional: reports: Sweats. denies: Fever, Chills Cardiac: reports: Reviewed and negative Respiratory: reports: Reviewed and negative GI: reports: Abdominal Pain, Nausea, Vomiting. 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 : None HEENT: None Psych: None Musculoskeletal: None Derm: None - Past Surgical History Past Surgical History: Yes General: Other /SKEINER: section, Tubal ligation HEENT: Myringotomy (tubes) - Present Medications Home Medications: Ambulatory Orders Medication Instructions Recorded Confirmed Blood Sugar Diagnostic [Glucometer 1 each ACHS #120 strip 06/05/18 Strips] Blood-Glucose Meter [Glucometer] 1 each ONCE #1 each 06/05/18 Ciprofloxacin HCl [Cipro] 500 mg PO BID #20 tablet 06/05/18 Hydrocodone/Acetaminophen 1 - 2 each PO Q6H PRN #14 tablet 06/05/18 [Hydrocodon-Acetaminophen 5-325] Lancets 1 each ACHS #120 each 06/05/18 Neomycin/Polymyx/Hc Otic Drops 4 drops OT TID #1 bottle 06/05/18 [Cortisporin Ear Susp] metFORMIN [Glucophage] 500 mg PO BIDWM #60 tablet 06/05/18 Ciprofloxacin/Hydrocortisone 3 ml OT BID #1 bottle 06/03/19 [Cipro Hc Otic Suspension] Doxycycline Hyclate 100 mg PO BID #20 capsule 06/03/19 Hydrocodone/Acetaminophen 1 - 2 each PO Q6H PRN #14 tablet 06/03/19 [Hydrocodon-Acetaminophen 5-325] Ondansetron Odt [Zofran] 4 mg TL Q6H PRN #14 tablet 07/22/19 oxyCODONE [Roxicodone] 10 mg PO Q6H PRN #20 tablet 07/22/19 - Allergies Allergies/Adverse Reactions: Allergies Allergy/AdvReac Type Severity Reaction Status Date / Time cefaclor [From [facility]] Allergy Unknown Verified 07/21/19 21:21 Penicillins Allergy Unknown Verified 07/21/19 21:21 - Social History Does the pt smoke?: Yes Smoking Status: Current every day smoker Does the pt drink ETOH?: Yes Does the pt have substance abuse?: No - Immunizations Immunizations are current?: Yes - POLST Patient has POLST: No PD ED PE NORMAL - Vitals Vital signs reviewed: Yes - General General: Alert and oriented X 3, Other (obese female in waxing and waning painful discomfort) - Neck Neck: Supple, no meningeal sign - Cardiac Cardiac: RRR, No murmur - Respiratory Respiratory: No respiratory distress, Clear bilaterally - Abdomen Abdomen: Soft, Non distended, Other (tender midline lower abdomen and anterior pelvis ) - Back Back: No CVA TTP - Derm Derm: Normal color, Warm and dry Results - Vitals Vitals: Oxygen O2 Source Room air - Labs Labs: Laboratory Tests 07/21/19 07/21/19 07/21/19 21:49 21:49 22:00 WBC 5.8 RBC 4.96 Hgb 14.1 Hct 43.4 MCV 87.5 MCH 28.4 MCHC 32.5 RDW 12.2 Plt Count 277 MPV 9.8 Neut # (Auto) 3.0 Lymph # (Auto) 2.2 Finney # (Auto) 0.4 Eos # (Auto) 0.1 Baso # (Auto) 0.0 Absolute Nucleated RBC 0.00 Nucleated RBC % 0.0 Sodium 137 Potassium 3.8 Chloride 103 Carbon Dioxide 25 Anion Gap 9.0 BUN 11 Creatinine 0.5 Estimated GFR (MDRD) 145 Glucose 316 H Calcium 8.6 Total Bilirubin 0.5 AST 21 ALT 25 Alkaline Phosphatase 63 Total Protein 7.0 Albumin 3.9 Globulin 3.1 Albumin/Globulin Ratio 1.3 Lipase 30 Urine Color Urine Clarity Urine pH Ur Specific [place] 1.020 Urine Protein Urine Glucose (UA) Urine Ketones Urine Occult Blood Urine Nitrite Urine Bilirubin Urine Urobilinogen Ur Leukocyte Esterase Ur Microscopic Review Urine Culture Comments Urine HCG, Qual NEGATIVE 07/21/19 22:01 WBC RBC Hgb Hct MCV MCH MCHC RDW Plt Count MPV Neut # (Auto) Lymph # (Auto) [place] # (Auto) Eos # (Auto) Baso # (Auto) Absolute Nucleated RBC Nucleated RBC % Sodium Potassium Chloride Carbon Dioxide Anion Gap BUN Creatinine Estimated GFR (MDRD) Glucose Calcium Total Bilirubin AST ALT Alkaline Phosphatase Total Protein Albumin Globulin Albumin/Globulin Ratio Lipase Urine Color YELLOW Urine Clarity CLEAR Urine pH 5.5 Ur Specific [place] 1.020 Urine Protein NEGATIVE Urine Glucose (UA) >=1000 H Urine Ketones 15 H Urine Occult Blood NEGATIVE Urine Nitrite NEGATIVE Urine Bilirubin NEGATIVE Urine Urobilinogen 0.2 (NORMAL) Ur Leukocyte Esterase NEGATIVE Ur Microscopic Review NOT INDICATED Urine Culture Comments NOT INDICATED Urine HCG, Qual - Rads (name of study) CT A/P Radiology: Prelim report reviewed, See rad report PD MEDICAL DECISION MAKING - ED course Complexity details: reviewed old records, reviewed results, re-evaluated patient, considered differential, d/w patient ED course: Discussed with Dr. Barry, including results of ED tests/CT. Plan is to f/u with him on Wednesday as planned. Patient is comfortable on my reevaluation and tonight's test results do not indicate emergent process that would necessitate admission to hospital. Departure - Departure Disposition: 01 Home, Self Care Clinical Impression: Abdominal pain Condition: Good Instructions: ED Abdominal Pain Unkn Cause Follow-Up: Cristofer Roldan PA-C [Primary Care Provider] - Carlos Horn DO [Provider Admit Priv/Credential] - Prescriptions: Ondansetron Odt [Zofran] 4 mg TL Q6H PRN #14 tablet PRN Reason: Nausea / Vomiting oxyCODONE [Roxicodone] 10 mg PO Q6H PRN #20 tablet PRN Reason: Pain Discharge Date/Time: 07/22/19 02:31
[2019-07-21 22:08] LABS: ALBUMIN 3.9 g/dL (3.2-5.5); ALBUMIN/GLOBULIN RATIO 1.3 (1.0-2.2); BILIRUBIN,TOTAL 0.5 mg/dL (0.2-1.0); CALCIUM 8.6 mg/dL (8.5-10.3); CREATININE 0.5 mg/dL (0.4-1.0)
[2019-07-21 22:08] LABS: BILIRUBIN,URINE NEGATIVE (NEGATIVE); GLUCOSE, URINE (UA) >=1000 mg/dL (NEGATIVE); KETONES,URINE (UA) 15 mg/dL (NEGATIVE); LEUKOCYTE ESTERASE, URINE NEGATIVE (NEGATIVE); NITRITE,URINE NEGATIVE (NEGATIVE); OCCULT BLOOD,URINE NEGATIVE (NEGATIVE); PH,URINE 5.5 PH (5.0-7.5); PROTEIN,URINE NEGATIVE (NEGATIVE); UROBILINOGEN,URINE 0.2 (NORMAL) E.U./dL (NORMAL)
[2019-07-21 22:11] LABS: HCG UR QUAL NEGATIVE
[2019-07-21] MEDS ORDERED: HYDROmorphone 1 MG/ML CARPUJECT IVP STA (22:32)
[2019-07-21] MEDS ORDERED: ONDANSETRON 4 MG/2 ML VIAL IVP STA (22:32)
[2019-07-21] MEDS ORDERED: SODIUM CHLORIDE 0.9% 1,000 ML IV STA (22:32)
[2019-07-21 22:39] LABS: CLARITY,URINE CLEAR (CLEAR)
[2019-07-21] MEDS ORDERED: IOVERSOL 320 100 ML VIAL IVP ONE ×2 (22:42→23:19)
--- NOTE | 2019-07-21 23:34 | CT Report ---
Reason: abd/pelvic pain, recent abnl. US Procedure Date: 07/21/2019 Accession Number: [id number] / [id number] Procedure: CT - Abdomen/Pelvis W CPT Code: Final Report FULL RESULT: EXAM: CT ABDOMEN AND PELVIS EXAM DATE: 07/21/2019 11:16 PM. CLINICAL HISTORY: Abd/pelvic pain, recent abnl. US. COMPARISONS: ABDOMEN LIMITED 07/15/2019 11:22 AM. TECHNIQUE: Routine helical CT imaging was performed through the abdomen and pelvis. IV contrast: OPTI 320 100ML. Enteric contrast: No. Reconstructions: Coronal and sagittal. In accordance with CT protocol optimization, one or more of the following dose reduction techniques were utilized for this exam: automated exposure control, adjustment of mA and/or KV based on patient size, or use of iterative reconstructive technique. FINDINGS: Lung Bases: Unremarkable. Liver: There is fatty infiltration of the liver. Gallbladder/Bile Ducts: Unremarkable. Spleen: Normal. Pancreas: Normal. Adrenal Glands: Normal. Kidneys: Normal. No masses or hydronephrosis. Peritoneal Cavity/Bowel: Normal. No free fluid, free air or adenopathy. No masses or acute inflammatory process. The appendix is well visualized and normal. Pelvic Organs: The uterus is slightly elongated not unusual . There are no adnexal masses. There is no free fluid in the pelvis. Vasculature: No aneurysms or other significant abnormality. Bones: No significant abnormality. Other: There is a "cyst" involving the anterior pelvic wall. This cyst measures 34 mm x32 mm x26 mm. There is no appreciable circumferential enhancement. IMPRESSION: 1. Fatty infiltration of the liver. 2. Cyst along the superficial portion of the midline of the anterior pelvic wall. RADIA
[2019-07-22] MEDS ORDERED: HYDROmorphone 1 MG/ML CARPUJECT IVP STA (01:57)
[2019-07-22] MEDS ORDERED: ONDANSETRON 4 MG/2 ML VIAL IVP STA (01:57)
[2019-07-22] MEDS ORDERED: HYDROmorphone 1 MG/ML CARPUJECT ONE (02:03)
[2019-07-22 02:31] VITALS: BP 118/76
== END 2019-07-22 02:31 | disposition home or self-care (01) ==
LOC: ED 21:13
DX: R10.30 Lower abdominal pain, unspecified (principal); R11.2 Nausea with vomiting, unspecified; N94.89 Other specified conditions associated with female genital organs and menstrual cycle; K76.0 Fatty (change of) liver, not elsewhere classified; E11.9 Type 2 diabetes mellitus without complications; Z79.84 Long term (current) use of oral hypoglycemic drugs; Z86.14 Personal history of Methicillin resistant Staphylococcus aureus infection; F17.200 Nicotine dependence, unspecified, uncomplicated
CPT/HCPCS: 36415; 74177; 80053; 81003; 81025; 83690; 85025; 96361; 96374; 96375; 96376; 99284; J1170; Q9967; 81001; 87086

== ENCOUNTER 2019-08-02 06:53 | Outpatient (CLI) | payer MEDICAID ==
--- NOTE | 2019-08-02 17:21 | Ultrasound Report ---
Reason: CHOLECYSTITIS Procedure Date: 08/02/2019 Accession Number: [id number] / [id number] Procedure: US - Abdomen Complete CPT Code: Final Report FULL RESULT: EXAM: ABDOMEN ULTRASOUND EXAM DATE: 08/02/2019 06:54 AM. CLINICAL HISTORY: Follow-up cholecystitis. COMPARISON: Abdominal pelvic CT 07/21/2019. TECHNIQUE: Real-time scanning was performed with static images obtained. FINDINGS: Liver: The liver is moderate to severely echogenic diffusely. No focal masses evident. The right lobe is enlarged measuring 22.4 cm. Main portal vein flow: Hepatopetal. Gallbladder: Normal. No stones, wall thickening, or sonographic Pike's sign. Biliary System: Common bile duct measures 4 mm. No intrahepatic or extrahepatic ductal dilatation. Pancreas: Obscured by bowel gas. Kidneys: Right: 13.3 cm longitudinally. Normal. No contour-deforming mass, stones, or hydronephrosis. Left: 14.3 cm longitudinally. Normal. No contour-deforming mass, stones, or hydronephrosis. Spleen: 13.5 cm. Mildly enlarged measuring 554 cc. No focal masses. Aorta and Inferior Vena Cava: The visualized portion is within normal limits. Other: None. IMPRESSION: 1. Normal gallbladder. 2. Moderate to severely fatty infiltrated and mildly enlarged liver. 3. Mild splenomegaly, similar to prior CT, possibly secondary to body habitus. RADIA
== END 2019-08-02 06:54 | disposition home or self-care (01) ==
LOC: DI 06:53
PROVIDERS: ATTEND Surgery
DX: K81.9 Cholecystitis, unspecified (principal); K76.0 Fatty (change of) liver, not elsewhere classified; R16.1 Splenomegaly, not elsewhere classified
CPT/HCPCS: 76700

== ENCOUNTER 2019-08-14 09:49 | Outpatient (CLI) | payer MEDICAID ==
[2019-08-14] MEDS ORDERED: SINCALIDE 5 MCG VIAL ONE (10:39)
[2019-08-14] MEDS ORDERED: SODIUM CHLORIDE 0.9% IV ONE (13:44)
[2019-08-14] MEDS ORDERED: SINCALIDE IV ONE (13:44)
--- NOTE | 2019-08-14 16:17 | Nuclear Medicine Report ---
Reason: CHOLECYSTITIS Procedure Date: 08/14/2019 Accession Number: [id number] / [id number] Procedure: NM - Hepatobiliary HIDA w/ Rx CPT Code: Final Report FULL RESULT: EXAM: HEPATOBILIARY SCAN WITH CCK/KINEVAC ADMINISTRATION EXAM DATE: 08/14/2019 01:27 PM. CLINICAL HISTORY: Cholecystitis. Nausea, vomiting, abdominal pain. COMPARISON: ABDOMEN COMPLETE 08/02/2019 6:54 AM. TECHNIQUE: Following the intravenous administration of 5.4 mCi of Tc99m Mebrofenin, a hepatobiliary scan was done centered on the liver and gallbladder in multiple sequential images and projections. Following the intravenous administration of 2.3 mcg of CCK/ Kinevac over the course of approximately 60 minutes, dynamic imaging was done and the gallbladder ejection fraction was calculated. FINDINGS: Normal extraction of tracer from the blood pool indicating normal hepatocellular function. The liver size and shape is grossly within normal limits. There is activity visualized within the bile ducts and gallbladder during the first hour. Small bowel activity is present after CCK administration. With CCK administration, the gallbladder demonstrates an effective contraction. The gallbladder ejection fraction is calculated to be 84%, well above the lower limit of normal of 38% for a 60-minute injection. The patient did not report symptoms after CCK administration. A small amount of enterogastric bile reflux is observed. IMPRESSION: 1. Patent cystic duct. 2. Patent common bile duct. 3. Negative for acute or chronic cholecystitis. 4. Positive for a small amount of enterogastric bile reflux. 5. Gallbladder ejection fraction of 84%. RADIA
== END 2019-08-14 09:50 | disposition home or self-care (01) ==
LOC: DI 09:49
PROVIDERS: ATTEND Surgery
DX: K31.89 Other diseases of stomach and duodenum (principal)
CPT/HCPCS: 78227; J7040

== ENCOUNTER 2019-08-24 15:56 | Emergency (ER) | payer MEDICAID ==
[2019-08-24 16:08] VITALS: BP 166/88
--- NOTE | 2019-08-24 16:24 | ED Physician Documentation ---
PD HPI ABD PAIN - Stated complaint Stated Complaint: ABD/PELVIC PAIN, NAUSEA - Chief complaint Chief Complaint: Abd Pain - History obtained from History obtained from: Patient - History of Present Illness Timing - onset: Other (29-year-old woman has had ongoing poor appetite and abdominal pain for the last several months. She was seen here on [address] showing a 34 x 32 x 26 mm cyst in the lower abdominal wall. She says that recently because she had to stop vaping and has to smoke again, she is developed a smoker's cough and every time she coughs she feels a ripping near her old scar. She was seeing a surgeon about these complaints and had upper and lower endoscopies done yesterday. But she feels like he is not listening to her.) Review of Systems Constitutional: denies: Fever, Chills Cardiac: reports: Reviewed and negative Respiratory: reports: Reviewed and negative GI: reports: Nausea. 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: section, Tubal ligation HEENT: Myringotomy (tubes) - Present Medications Home Medications: Ambulatory Orders Medication Instructions Recorded Confirmed Blood Sugar Diagnostic [Glucometer 1 each ACHS #120 strip 06/05/18 08/23/19 Strips] Blood-Glucose Meter [Glucometer] 1 each ONCE #1 each 06/05/18 08/23/19 Lancets 1 each ACHS #120 each 06/05/18 08/23/19 metFORMIN [Glucophage] 500 mg PO BIDWM #60 tablet 06/05/18 08/23/19 Ondansetron Odt [Zofran] 4 mg TL Q6H PRN #14 tablet 07/22/19 08/23/19 oxyCODONE [Roxicodone] 10 mg PO Q6H PRN #20 tablet 07/22/19 08/23/19 FLUoxetine [PROzac] 10 mg PO DAILY 08/22/19 08/22/19 Ondansetron Odt [Zofran] 4 mg TL Q6H PRN #10 tablet 08/24/19 Oxycodone HCl/Acetaminophen 1 - 2 each PO Q6H PRN #14 tablet 08/24/19 [Percocet 5-325 mg Tablet] - Allergies Allergies/Adverse Reactions: Allergies Allergy/AdvReac Type Severity Reaction Status Date / Time [facility] [[facility] [place] [place] Allergy Unknown Verified 08/24/19 16:04 Penicillins Allergy Unknown Verified 08/24/19 16:04 - Social History Does the pt smoke?: Yes Smoking Status: Current every day smoker Does the pt drink ETOH?: Yes Does the pt have substance abuse?: No - Immunizations Immunizations are current?: Yes - POLST Patient has POLST: No PD ED PE NORMAL - Vitals Vital signs reviewed: Yes - General General: Alert and oriented X 3, No acute distress - Abdomen Abdomen: Normal bowel sounds, Soft, Non tender, Other (On bedside ultrasound there is a Fluid-filled circumferential subcutaneous mass under her scar measuring 2 x 3 x 2 cm. There is also a shallow abdominal wall sebaceous cyst that she expresses every day, does not appear infected, the drainage was sent for culture.) - Back Back: No CVA TTP, No spinal TTP - Derm Derm: Normal color, Warm and dry Results - Vitals Vitals: Vital Signs - 24 hr 08/24/19 16:04 Temperature 37.2 C Heart Rate 98 Respiratory 17 Rate Blood Pressure 166/88 H O2 Saturation 99 Oxygen O2 Source Room air - Labs Labs: Laboratory Tests 08/24/19 08/24/19 08/24/19 16:25 16:33 16:33 WBC 6.3 RBC 5.32 Hgb 16.1 H Hct 47.1 H MCV 88.5 MCH 30.3 MCHC 34.2 RDW 11.9 L Plt Count 287 MPV 9.9 Neut # (Auto) 3.6 Lymph # (Auto) 2.2 [place] # (Auto) 0.4 Eos # (Auto) 0.1 Baso # (Auto) 0.0 Absolute Nucleated RBC 0.00 Nucleated RBC % 0.0 Sodium 135 Potassium 3.9 Chloride 99 L Carbon Dioxide 24 Anion Gap 12.0 BUN 6 Creatinine 0.5 Estimated GFR (MDRD) 145 Glucose 346 H Calcium 9.2 Total Bilirubin 0.5 AST 28 ALT 29 Alkaline Phosphatase 69 Total Protein 7.6 Albumin 4.0 Globulin 3.6 Albumin/Globulin Ratio 1.1 Lipase 28 Urine Color YELLOW Urine Clarity CLEAR Urine pH 5.5 Ur Specific [place] 1.020 Urine Protein NEGATIVE Urine Glucose (UA) >=1000 H Urine Ketones TRACE Urine Occult Blood NEGATIVE Urine Nitrite NEGATIVE Urine Bilirubin NEGATIVE Urine Urobilinogen 0.2 (NORMAL) Ur Leukocyte Esterase NEGATIVE Ur Microscopic Review NOT INDICATED Urine Culture Comments NOT INDICATED Urine HCG, Qual NEGATIVE PD MEDICAL DECISION MAKING - ED course ED course: 29-year-old woman with kind of subacute lower abdominal pain, likely from subcutaneous cyst in her old Pfannenstiel incision. She also has a shallower subcutaneous sebaceous cyst that was sent for culture but does not look clinically infected. Screening lab work was without acute abnormalities. Departure - Departure Disposition: Home, Self Care Clinical Impression: Subcutaneous cyst Abdominal pain Qualifiers: Abdominal location: lower abdomen, unspecified Qualified Code(s): R10.30 - Lower abdominal pain, unspecified Condition: Good Record reviewed to determine appropriate education?: Yes Follow-Up: Carlos Horn DO [Provider Admit Priv/Credential] - Prescriptions: Ondansetron Odt [Zofran] 4 mg TL Q6H PRN #10 tablet PRN Reason: Nausea / Vomiting Oxycodone HCl/Acetaminophen [Percocet 5-325 mg Tablet] 1 - 2 each PO Q6H PRN #14 tablet PRN Reason: pain Comments: Your blood work looks fine, there is no evidence of an active infection or active MRSA. We are performing a wound culture, and we will call you in antibiotics if necessary based on that but the upper cyst does not look infected to me. Return for new or worsening symptoms, follow-up with your surgeon and discuss potential excision of the cyst under your scar which does not seem to have grown in the last month. Discharge Date/Time: 08/24/19 17:18
[2019-08-24 16:30] LABS: BILIRUBIN,URINE NEGATIVE (NEGATIVE); GLUCOSE, URINE (UA) >=1000 mg/dL (NEGATIVE); KETONES,URINE (UA) TRACE mg/dL (NEGATIVE); LEUKOCYTE ESTERASE, URINE NEGATIVE (NEGATIVE); NITRITE,URINE NEGATIVE (NEGATIVE); OCCULT BLOOD,URINE NEGATIVE (NEGATIVE); PH,URINE 5.5 PH (5.0-7.5); PROTEIN,URINE NEGATIVE (NEGATIVE); UROBILINOGEN,URINE 0.2 (NORMAL) E.U./dL (NORMAL)
[2019-08-24 16:32] LABS: CLARITY,URINE CLEAR (CLEAR); HCG UR QUAL NEGATIVE
[2019-08-24 16:39] LABS: BASOPHILS % (AUTO) 0.2 %; EOSINOPHILS # (AUTO) 0.1 10^3/uL (0.0-0.7); EOSINOPHILS % (AUTO) 2.2 %; HGB - HEMOGLOBIN 16.1 g/dL (12.0-16.0); LYMPHOCYTES # (AUTO) 2.2 10^3/uL (1.5-3.5); LYMPHOCYTES % (AUTO) 34.3 %; MEAN CORPUSCULAR HEMOGLOBIN 30.3 pg (27.0-31.0); MEAN CORPUSCULAR HGB CONC 34.2 g/dL (32.0-36.0); MEAN CORPUSCULAR VOLUME 88.5 fL (81.0-99.0); MEAN PLATELET VOLUME 9.9 fL (7.9-10.8); MONOCYTES # (AUTO) 0.4 10^3/uL (0.0-1.0); MONOCYTES % (AUTO) 6.3 %; NEUTROPHILS # (AUTO) 3.6 10^3/uL (1.5-6.6); NEUTROPHILS % (AUTO) 56.4 %; PLT - PLATELET COUNT 287 10^3/uL (130-450); RED BLOOD COUNT 5.32 10^6/uL (4.20-5.40); RED CELL DISTRIBUTION WIDTH 11.9 % (12.0-15.0); WHITE BLOOD COUNT 6.3 x10^3/uL (4.8-10.8)
[2019-08-24 16:51] LABS: ALBUMIN/GLOBULIN RATIO 1.1 (1.0-2.2); BILIRUBIN,TOTAL 0.5 mg/dL (0.2-1.0); CALCIUM 9.2 mg/dL (8.5-10.3); CREATININE 0.5 mg/dL (0.4-1.0); TOTAL PROTEIN 7.6 g/dL (6.7-8.2)
[2019-08-24] MEDS: oxyCODONE 5 MG TABLET PO STA (17:00)
[2019-08-24] MEDS: ONDANSETRON ODT 4 MG TABLET TL STA (17:00)
== END 2019-08-24 17:18 | disposition home or self-care (01) ==
LOC: ED 15:56
DX: R10.30 Lower abdominal pain, unspecified (principal); R22.2 Localized swelling, mass and lump, trunk; L72.3 Sebaceous cyst; R63.0 Anorexia; F17.200 Nicotine dependence, unspecified, uncomplicated; E11.9 Type 2 diabetes mellitus without complications; Z98.891 History of uterine scar from previous surgery; Z98.51 Tubal ligation status; Z79.84 Long term (current) use of oral hypoglycemic drugs; Z68.42 Body mass index [BMI] 45.0-49.9, adult
CPT/HCPCS: 36415; 80053; 81001; 81003; 81025; 83690; 85025; 87070; 87077; 87086; 87205; 99283

== ENCOUNTER 2019-09-05 10:34 | Emergency (ER) | payer MEDICAID ==
[2019-09-05] MEDS ORDERED: SODIUM CHLORIDE 0.9% 1,000 ML IV ONE (13:24)
[2019-09-05] MEDS ORDERED: KETOROLAC 30 MG/ML VIAL IVP STA (13:24)
[2019-09-05] MEDS ORDERED: ONDANSETRON 4 MG/2 ML VIAL IVP STA (13:24)
[2019-09-05 13:53] LABS: BASOPHILS % (AUTO) 0.2 %; EOSINOPHILS # (AUTO) 0.2 10^3/uL (0.0-0.7); EOSINOPHILS % (AUTO) 2.6 %; HGB - HEMOGLOBIN 15.5 g/dL (12.0-16.0); LYMPHOCYTES # (AUTO) 2.2 10^3/uL (1.5-3.5); LYMPHOCYTES % (AUTO) 34.6 %; MEAN CORPUSCULAR HEMOGLOBIN 30.8 pg (27.0-31.0); MEAN CORPUSCULAR HGB CONC 34.8 g/dL (32.0-36.0); MEAN CORPUSCULAR VOLUME 88.7 fL (81.0-99.0); MEAN PLATELET VOLUME 10.2 fL (7.9-10.8); MONOCYTES # (AUTO) 0.3 10^3/uL (0.0-1.0); MONOCYTES % (AUTO) 5.1 %; NEUTROPHILS # (AUTO) 3.7 10^3/uL (1.5-6.6); PLT - PLATELET COUNT 233 10^3/uL (130-450); RED BLOOD COUNT 5.03 10^6/uL (4.20-5.40); RED CELL DISTRIBUTION WIDTH 11.9 % (12.0-15.0); WHITE BLOOD COUNT 6.5 x10^3/uL (4.8-10.8)
[2019-09-05 13:55] LABS: BILIRUBIN,URINE NEGATIVE (NEGATIVE); CLARITY,URINE CLEAR (CLEAR); GLUCOSE, URINE (UA) >=1000 mg/dL (NEGATIVE); KETONES,URINE (UA) TRACE mg/dL (NEGATIVE); LEUKOCYTE ESTERASE, URINE NEGATIVE (NEGATIVE); NITRITE,URINE NEGATIVE (NEGATIVE); OCCULT BLOOD,URINE NEGATIVE (NEGATIVE); PH,URINE 5.5 PH (5.0-7.5); PROTEIN,URINE NEGATIVE (NEGATIVE); UROBILINOGEN,URINE 0.2 (NORMAL) E.U./dL (NORMAL)
[2019-09-05 14:06] LABS: ALBUMIN 3.8 g/dL (3.2-5.5); ALBUMIN/GLOBULIN RATIO 1.2 (1.0-2.2); BILIRUBIN,TOTAL 0.5 mg/dL (0.2-1.0); CALCIUM 8.9 mg/dL (8.5-10.3); CREATININE 0.5 mg/dL (0.4-1.0); TOTAL PROTEIN 6.9 g/dL (6.7-8.2)
[2019-09-05] MEDS ORDERED: LIDOCAINE 2%-EPI 1:100000 20 ML MDV SUBQ STA (14:39)
[2019-09-05] MEDS ORDERED: VANCOMYCIN INJ 1 GM in SODIUM CHLORIDE 0.9% 500 ML IV STA (15:59)
[2019-09-05] MEDS ORDERED: AMPICILLIN/SULBACTAM 3 GM in SODIUM CHLORIDE 0.9% MINIBAG 100 ML IV STA (16:00)
--- NOTE | 2019-09-05 16:19 | ED Physician Documentation ---
PD HPI SKIN - Stated complaint Stated Complaint: ABD PX - Chief complaint Chief Complaint: Wound - History obtained from History obtained from: Patient - History of Present Illness Timing - onset: How many days ago (10) Timing - duration: Days (10) Timing - details: Gradual onset Location: Abdomen Associated symptoms: No: Fever Recently seen: Emergency Dept - Additional information Additional information: This is a 29-year-old woman who presents with complaints that for the past 10 days she has had some abdominal pain and she feels a "ripping" sensation whenever she coughs. She was seen here in the emergency department 8 days ago and had an I&D of an abscess. She has been putting hot compresses on it since then but now it is getting red and hot and tracking up her belly. She is been a little bit nauseous but no vomiting. She has not taken anything at home for the pain. No fever. She has not felt dizzy or passed out. She is diabetic but does not monitor her blood sugars closely. She has had prior abscess the incision site for her . Review of Systems Constitutional: denies: Fever GI: reports: Abdominal Pain, Nausea. 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 : None HEENT: None Psych: None Musculoskeletal: None Derm: None - Past Surgical History Past Surgical History: Yes General: Other /TEACHER LIP READING: section, Tubal ligation HEENT: Myringotomy (tubes) - Present Medications Home Medications: Ambulatory Orders Medication Instructions Recorded Confirmed Blood Sugar Diagnostic [Glucometer 1 each ACHS #120 strip 06/05/18 08/23/19 Strips] Blood-Glucose Meter [Glucometer] 1 each ONCE #1 each 06/05/18 08/23/19 Lancets 1 each ACHS #120 each 06/05/18 08/23/19 metFORMIN [Glucophage] 500 mg PO BIDWM #60 tablet 06/05/18 08/23/19 Ondansetron Odt [Zofran] 4 mg TL Q6H PRN #14 tablet 07/22/19 08/23/19 oxyCODONE [Roxicodone] 10 mg PO Q6H PRN #20 tablet 07/22/19 08/23/19 FLUoxetine [PROzac] 10 mg PO DAILY 08/22/19 08/22/19 Ondansetron Odt [Zofran] 4 mg TL Q6H PRN #10 tablet 08/24/19 Oxycodone HCl/Acetaminophen 1 - 2 each PO Q6H PRN #14 tablet 08/24/19 [Percocet 5-325 mg Tablet] Amox/Clav 875/125 [Augmentin] 1 each PO Q12H #20 tablet 09/05/19 Hydrocodone/Acetaminophen 1 - 2 each PO Q6H PRN #10 tablet 09/05/19 [Hydrocodon-Acetaminophen 5-325] Oxycodone HCl/Acetaminophen 1 each PO Q6HR #10 tablet 09/05/19 [Percocet 5-325 mg Tablet] Sulfamethox/Trimeth 800/160 1 each PO BID #14 tablet 09/05/19 [Bactrim Ds 800/160] - Allergies Allergies/Adverse Reactions: Allergies Allergy/AdvReac Type Severity Reaction Status Date / Time cefaclor [From [facility]] Allergy Unknown Verified 09/05/19 11:10 Penicillins Allergy Unknown Verified 09/05/19 11:10 - Social History Does the pt smoke?: Yes Smoking Status: Current every day smoker Does the pt drink ETOH?: Yes Does the pt have substance abuse?: No - Immunizations Immunizations are current?: Yes - POLST Patient has POLST: No PD ED PE NORMAL - Vitals Vital signs reviewed: Yes - General General: Alert and oriented X 3, No acute distress, Well developed/nourished - HEENT HEENT: Atraumatic, Other (No scleral icterus.) - Cardiac Cardiac: RRR, No murmur - Respiratory Respiratory: No respiratory distress, Clear bilaterally - Abdomen Abdomen: Other (Obese. The patient is outlined an area of erythema that several centimeters across below the bellybutton in her mid abdomen. At the inferior margin of this is an area of induration and fluctuance consistent with an abscess. This is above her Pfannenstiel incision. 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, No motor deficit, No sensory deficit, Normal speech - Psych Psych: Normal mood, Normal affect Results - Vitals Vitals: Vital Signs - 24 hr 09/05/19 09/05/19 11:07 12:58 Temperature 36.7 C 36.9 C Heart Rate 107 H 73 Respiratory 18 18 Rate Blood Pressure 143/90 H 130/80 O2 Saturation 100 96 Oxygen O2 Source Room air - Labs Labs: Laboratory Tests 09/05/19 09/05/19 09/05/19 13:40 13:48 13:48 WBC 6.5 RBC 5.03 Hgb 15.5 Hct 44.6 MCV 88.7 MCH 30.8 MCHC 34.8 RDW 11.9 L Plt Count 233 MPV 10.2 Neut # (Auto) 3.7 Lymph # (Auto) 2.2 Placer # (Auto) 0.3 Eos # (Auto) 0.2 Baso # (Auto) 0.0 Absolute Nucleated RBC 0.00 Nucleated RBC % 0.0 Sodium 135 Potassium 3.9 Chloride 98 L Carbon Dioxide 24 Anion Gap 13.0 BUN 5 L Creatinine 0.5 Estimated GFR (MDRD) 145 Glucose 351 H Lactic Acid Calcium 8.9 Total Bilirubin 0.5 AST 20 ALT 27 Alkaline Phosphatase 68 Total Protein 6.9 Albumin 3.8 Globulin 3.1 Albumin/Globulin Ratio 1.2 Lipase 31 Urine Color YELLOW Urine Clarity CLEAR Urine pH 5.5 Ur Specific [place] 1.010 Urine Protein NEGATIVE Urine Glucose (UA) >=1000 H Urine Ketones TRACE Urine Occult Blood NEGATIVE Urine Nitrite NEGATIVE Urine Bilirubin NEGATIVE Urine Urobilinogen 0.2 (NORMAL) Ur Leukocyte Esterase NEGATIVE Ur Microscopic Review NOT INDICATED Urine Culture Comments NOT INDICATED 09/05/19 13:48 WBC RBC Hgb Hct MCV MCH MCHC RDW Plt Count MPV Neut # (Auto) Lymph # (Auto) Placer # (Auto) Eos # (Auto) Baso # (Auto) Absolute Nucleated RBC Nucleated RBC % Sodium Potassium Chloride Carbon Dioxide Anion Gap BUN Creatinine Estimated GFR (MDRD) Glucose Lactic Acid 1.5 Calcium Total Bilirubin AST ALT Alkaline Phosphatase Total Protein Albumin Globulin Albumin/Globulin Ratio Lipase Urine Color Urine Clarity Urine pH Ur Specific [place] Urine Protein Urine Glucose (UA) Urine Ketones Urine Occult Blood Urine Nitrite Urine Bilirubin Urine Urobilinogen Ur Leukocyte Esterase Ur Microscopic Review Urine Culture Comments Procedures - Abscess I&D (location) Abdomen Preparation: Chlorhexadine, Lidocaine 2 %, With epi Incision: Incised with scalpel, Purulent drainage, Loculations broken, Irrigated, Packed Other: Pt tolerated well, Dressing applied, Antibiotic prescribed PD MEDICAL DECISION MAKING - ED course Complexity details: reviewed results, re-evaluated patient, d/w patient ED course: White blood cell count is normal. Her glucose is elevated at 351 and her urine has glucose in it but no sign of infection. The abscess was drained and packed. Can have an official ultrasound to look at the area of erythema to make sure there is not another deeper abscess in there. Patient is given Vanco IV and based on her culture result 8 days ago which grew out a strep bacteria I am in a place her on Unasyn IV. She has a penicillin allergy but can take amoxicillin and also Bactrim. Plan to do those as an outpatient pending results of the ultrasound. Patient got good pain relief with Toradol. 1643: Nursing staff came and said that she was starting to have some more pain after she had been for the ultrasound. We will give her oral hydrocodone. The ultrasound does not show any pocket of infection in the area of cellulitis on her abdominal wall. She will be discharged on Bactrim and Augmentin. I recommended that she follow-up tomorrow or at the latest the following day with her primary care provider. Follow-up for sure tomorrow if the redness is spreading, she has a fever or is vomiting and cannot keep anything down. She will be given a prescription for just 6 hydrocodone tablets to help with the pain. I will encourage the use of ibuprofen as well. Departure - Departure Disposition: 01 Home, Self Care Clinical Impression: Abscess Cellulitis Qualifiers: Site of cellulitis: trunk Site of cellulitis of trunk: abdominal wall Qualified Code(s): L03.311 - Cellulitis of abdominal wall Condition: Good Instructions: ED Abscess IandD Follow-Up: Cristofer Roldan PA-C [Primary Care Provider] - Prescriptions: Oxycodone HCl/Acetaminophen [Percocet 5-325 mg Tablet] 1 each PO Q6HR #10 tablet Amox/Clav 875/125 [Augmentin] 1 each PO Q12H #20 tablet Hydrocodone/Acetaminophen [Hydrocodon-Acetaminophen 5-325] 1 - 2 each PO Q6H PRN #10 tablet PRN Reason: pain Sulfamethox/Trimeth 800/160 [Bactrim Ds 800/160] 1 each PO BID #14 tablet Comments: Take both the Bactrim and Augmentin twice a day. Recheck with your primary care provider tomorrow particularly if this redness is spreading or getting more painful. Wait no longer than 2 days for recheck. You may take the hydrocodone if needed for pain but do not drive or operate machinery if you are taking it. Do not take additional Tylenol with it. I would encourage you to use an anti- inflammatory like ibuprofen or Aleve [id number] to help with the inflammation so that the antibiotic can work better. Return to the emergency department if you have increasing pain, you are vomiting and cannot keep anything down, you develop a fever or other problems arise.
--- NOTE | 2019-09-05 16:33 | Ultrasound Report ---
Reason: abd wall cellulitis Procedure Date: 09/05/2019 Accession Number: [id number] / [id number] Procedure: US - Abdomen Limited CPT Code: Final Report FULL RESULT: EXAM: ABDOMEN ULTRASOUND LIMITED EXAM DATE: 09/05/2019 04:13 PM. CLINICAL HISTORY: Abdominal wall cellulitis. COMPARISON: ABDOMEN/PELVIS W/ 07/21/2019 11:03 PM ABDOMEN LIMITED 07/15/2019 11:22 AM. TECHNIQUE: Real-time scanning was performed with static images obtained. FINDINGS: In the deep subcutaneous fat, midline pelvis, is a complex fluid collection without surrounding hyperemia 2.7 x 2.1 x 3.6 cm. Deep to the abdominal wall collection within the pelvis is a second complex fluid collection without surrounding hyperemia right of midline 2.0 x 1.7 x 1.3 cm. IMPRESSION: 2 pelvic fluid collections, one in the deep subcutaneous fat of the abdominal wall, one between the uterus and the abdominal wall right of midline, both seen in retrospect on recent CT exam and not significantly changed. RADIA
[2019-09-05] MEDS ORDERED: HYDROcod/ACETAM 5/325 MG TABLET PO STA (16:42)
[2019-09-05] MEDS ORDERED: oxyCODONE 5 MG TABLET PO STA (17:04)
[2019-09-05] MEDS ORDERED: VANCOMYCIN INJ 1 GM in SODIUM CHLORIDE 0.9% 250 ML IV STA (17:06)
[2019-09-05 19:20] VITALS: BP 121/87
== END 2019-09-05 19:34 | disposition home or self-care (01) ==
LOC: ED 10:34
DX: L02.211 Cutaneous abscess of abdominal wall (principal); L03.311 Cellulitis of abdominal wall; E11.65 Type 2 diabetes mellitus with hyperglycemia; Z79.84 Long term (current) use of oral hypoglycemic drugs; Z88.0 Allergy status to penicillin; F17.200 Nicotine dependence, unspecified, uncomplicated
CPT/HCPCS: 10060; 36415; 76705; 80053; 81003; 83605; 83690; 85025; 87040; 87070; 87077; 87205; 96361; 96365; 96366; 96367; 96375; 99284; 99285; A9270; J3370; 81001; 87086

== ENCOUNTER 2019-11-08 17:11 | Outpatient (CLI) | payer MEDICAID | END 2019-11-08 17:12 | disposition home or self-care (01) | LOC: COV 17:11 | PROVIDERS: ATTEND Family Medicine | DX: R05 Cough (principal); R50.9 Fever, unspecified ==

== ENCOUNTER 2020-03-31 14:01 | Emergency (ER) | payer MEDICAID ==
[2020-03-31 14:32] LABS: BASOPHILS % (AUTO) 0.3 %; EOSINOPHILS # (AUTO) 0.2 10^3/uL (0.0-0.7); HGB - HEMOGLOBIN 16.4 g/dL (12.0-16.0); LYMPHOCYTES # (AUTO) 2.1 10^3/uL (1.5-3.5); LYMPHOCYTES % (AUTO) 23.4 %; MEAN CORPUSCULAR HEMOGLOBIN 30.7 pg (27.0-31.0); MEAN CORPUSCULAR HGB CONC 34.7 g/dL (32.0-36.0); MEAN CORPUSCULAR VOLUME 88.6 fL (81.0-99.0); MEAN PLATELET VOLUME 9.9 fL (7.9-10.8); MONOCYTES # (AUTO) 0.6 10^3/uL (0.0-1.0); NEUTROPHILS # (AUTO) 6.2 10^3/uL (1.5-6.6); PLT - PLATELET COUNT 246 10^3/uL (130-450); RED BLOOD COUNT 5.34 10^6/uL (4.20-5.40); RED CELL DISTRIBUTION WIDTH 11.7 % (12.0-15.0); WHITE BLOOD COUNT 9.2 x10^3/uL (4.8-10.8)
[2020-03-31 14:46] LABS: ALBUMIN 3.9 g/dL (3.2-5.5); ALBUMIN/GLOBULIN RATIO 1.3 (1.0-2.2); BILIRUBIN,TOTAL 0.6 mg/dL (0.2-1.0); CALCIUM 8.9 mg/dL (8.5-10.3); CREATININE 0.5 mg/dL (0.4-1.0)
[2020-03-31 14:46] LABS: BILIRUBIN,URINE NEGATIVE (NEGATIVE); GLUCOSE, URINE (UA) >=1000 mg/dL (NEGATIVE); KETONES,URINE (UA) 15 mg/dL (NEGATIVE); LEUKOCYTE ESTERASE, URINE NEGATIVE (NEGATIVE); NITRITE,URINE NEGATIVE (NEGATIVE); OCCULT BLOOD,URINE NEGATIVE (NEGATIVE); PROTEIN,URINE NEGATIVE (NEGATIVE); UROBILINOGEN,URINE 0.2 (NORMAL) E.U./dL (NORMAL)
[2020-03-31] MEDS ORDERED: DEXAMETHASONE 10 MG/ML VIAL IVP STA (14:53)
[2020-03-31] MEDS ORDERED: KETOROLAC 30 MG/ML VIAL IVP STA (14:53)
[2020-03-31] MEDS ORDERED: SODIUM CHLORIDE 0.9% 1,000 ML IV STA ×2 (14:53→16:17)
[2020-03-31 14:57] LABS: CLARITY,URINE CLEAR (CLEAR); HCG UR QUAL NEGATIVE
[2020-03-31] MEDS ORDERED: INSULIN REGULAR HUMAN 100 UNIT/1 ML 10 ML MDV IVP STA (15:03)
[2020-03-31] MEDS ORDERED: IOVERSOL 320 100 ML VIAL IVP ONE ×2 (15:04→17:29)
--- NOTE | 2020-03-31 15:05 | ED Physician Documentation ---
PD HPI ABD PAIN - Stated complaint Stated Complaint: DIZZINESS/SORE THROAT - Chief complaint Chief Complaint: Abd Pain - History obtained from History obtained from: Patient - History of Present Illness Timing - onset: How many months ago (9) Timing - duration: Months (9) Timing - details: Abrupt onset, Still present Quality: Sharp, Pain Location: Periumbilical, Suprapubic Improved by: Other (time) Worsened by: Eating Associated symptoms: Nausea, Weight loss (40lbs) Similar symptoms before: Diagnosis (abcess to the "stomach") Recently seen: Not recently seen - Additional information Additional information: 29-year-old obese female reports that she developed some pain related to an abscess in her stomach 9 months ago and she indicates that she has pain every time after she eats and that she was seeing a surgeon [facility] in [facility] and she was scheduled to have a CT scan done which she was not able to complete secondary to COVID. She indicates that her work-up was interrupted by COVID and she has been unable to eat without severe pain and has lost about 40 pounds. Today she is complaining of a sore throat that she has on awakening as well as severe stomach pain. She is crying with every breath. Review of Systems Constitutional: reports: Fatigue. denies: Fever Eyes: denies: Decreased vision Ears: denies: Ear pain Nose: reports: Congestion. denies: Rhinorrhea / runny nose Throat: reports: Sore throat Cardiac: denies: Chest pain / pressure, Palpitations Respiratory: denies: Dyspnea, Cough GI: reports: Abdominal Pain, Nausea, Vomiting : denies: Dysuria, Frequency Skin: denies: Rash Musculoskeletal: denies: Neck pain, Back pain, Extremity pain Neurologic: denies: Generalized weakness, Focal weakness, Numbness PD PAST MEDICAL HISTORY - Past Medical History Past Medical History: Yes Cardiovascular: None Respiratory: None Neuro: None Endocrine/Autoimmune: Type 2 diabetes GI: None, Other RN TRANSITIONAL: Miscarriage(s) : None HEENT: None Psych: Depression, Anxiety Musculoskeletal: None Derm: None - Past Surgical History Past Surgical History: Yes General: Other /RN TRANSITIONAL: section, Tubal ligation HEENT: Myringotomy (tubes) - Present Medications Home Medications: Ambulatory Orders Medication Instructions Recorded Confirmed Blood Sugar Diagnostic [Glucometer [address] [facility] #120 strip 06/05/18 03/31/20 Strips] Blood-Glucose Meter [Glucometer] 1 each ONCE #1 each 06/05/18 08/23/19 Lancets 1 each ACHS #120 each 06/05/18 03/31/20 metFORMIN [Glucophage] 500 mg PO BIDWM #60 tablet 06/05/18 03/31/20 Ondansetron Odt [Zofran] 4 mg TL Q6H PRN #10 tablet 08/24/19 03/31/20 Mupirocin 1 gm EBENEZER TID #2 oin.pf.rudy 09/05/19 03/31/20 - Allergies Allergies/Adverse Reactions: Allergies Allergy/AdvReac Type Severity Reaction Status Date / Time cefaclor [From Ceclor] Allergy Unknown Verified 03/31/20 14:04 Penicillins Allergy Unknown Verified 03/31/20 14:04 acetaminophen [From Vicodin] AdvReac Itching Verified 03/31/20 14:04 hydrocodone [From Vicodin] AdvReac Itching Verified 03/31/20 14:04 - Social History Does the pt smoke?: Yes Smoking Status: Current every day smoker Does the pt drink ETOH?: Yes Does the pt have substance abuse?: Yes Substance Use and Type: Marijuana - Immunizations Immunizations are current?: Yes - POLST Patient has POLST: No PD ED PE NORMAL - Vitals Vital signs reviewed: Yes - General General: Alert and oriented X 3, Well developed/nourished, Other (obese female whines and grunts in pain while giving history ) - HEENT HEENT: Atraumatic, PERRL, EOMI, Ears normal, Other (The phaynx is with 2+ tonsils with exudate. ) - Neck Neck: Supple, no meningeal sign, No bony TTP - Cardiac Cardiac: No murmur, Other (tachy to 100) - Respiratory Respiratory: No respiratory distress, Clear bilaterally - Abdomen Abdomen: Normal bowel sounds, Soft, Non distended, No organomegaly, Other (There is tendernss to the abdominal wall below the umbilicus and above the Pf annenstiel incision which appears well-healed. There is palpable mass >1cm in the area without overlying skin erythema or fluctuance to the area. The remainder of the abdominal exam is unremarkable. 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 ) Results - Vitals Vitals: Vital Signs - 24 hr 03/31/20 03/31/20 03/31/20 14:05 14:50 16:12 Temperature 36.6 C Heart Rate 103 H 88 84 Respiratory 18 16 Rate Blood Pressure 139/81 H 137/100 H 113/70 O2 Saturation 98 99 98 Oxygen O2 Source Room air - Labs Labs: Laboratory Tests 03/31/20 03/31/20 03/31/20 14:20 14:20 14:35 WBC 9.2 RBC 5.34 Hgb 16.4 H Hct 47.3 H MCV 88.6 MCH 30.7 MCHC 34.7 RDW 11.7 L Plt Count 246 MPV 9.9 Neut # (Auto) 6.2 Lymph # (Auto) 2.1 [place] # (Auto) 0.6 Eos # (Auto) 0.2 Baso # (Auto) 0.0 Absolute Nucleated RBC 0.00 Nucleated RBC % 0.0 Sodium 134 L Potassium 4.1 Chloride 101 Carbon Dioxide 21 Anion Gap 12.0 BUN 10 Creatinine 0.5 Estimated GFR (MDRD) 145 Glucose 393 H Calcium 8.9 Total Bilirubin 0.6 AST 16 ALT 19 Alkaline Phosphatase 67 Total Protein 7.0 Albumin 3.9 Globulin 3.1 Albumin/Globulin Ratio 1.3 Lipase 25 Urine Color YELLOW Urine Clarity CLEAR Urine pH 6.0 Ur Specific [place] 1.010 Urine Protein NEGATIVE Urine Glucose (UA) >=1000 H Urine Ketones 15 H Urine Occult Blood NEGATIVE Urine Nitrite NEGATIVE Urine Bilirubin NEGATIVE Urine Urobilinogen 0.2 (NORMAL) Ur Leukocyte Esterase NEGATIVE Ur Microscopic Review NOT INDICATED Urine Culture Comments NOT INDICATED Urine HCG, Qual NEGATIVE PD MEDICAL DECISION MAKING - ED course Complexity details: reviewed old records, reviewed results, re-evaluated patient, considered differential, d/w patient ED course: 29-year-old female who has previously had an abdominal wall abscess and not any intra-abdominal abscess is complaining vehemently about postprandial pain and today she has a sore throat and appears particularly sensitive to pain. She does have exudative tonsillitis on exam.She has a history of diabetes and is markedly hyper glycemic and dehydrated. She has abdominal wall tenderness and I do not believe there is an intra-abdominal process. Patient is complaining of postprandial pain and a CT scan of the abdomen pelvis with oral and intravenous contrast is ordered. The patient has some difficulty getting the contrast down with a sore throat. She is treated here in the emergency department with intravenous saline Toradol and dexamethasone and a rapid strep was obtained as well. At shift change care of the patient's care is turned over to Dr. Ramirez with rapid strep and CT ab/pel pending.
[2020-03-31] MEDS ORDERED: IOVERSOL 320 50 ML VIAL ONE (15:12)
[2020-03-31] MEDS ORDERED: LIDOCAINE VISCOUS 2% 15 ML UDC MM STA (15:59)
[2020-03-31] MEDS ORDERED: IOVERSOL 320 50 ML VIAL PO ONE (17:29)
--- NOTE | 2020-03-31 17:43 | CT Report ---
PROCEDURE: Abdomen/Pelvis W INDICATIONS: post prandial pain X months lower abd CONTRAST: IV CONTRAST: Optiray 320 ml: 100 PO CONTRAST: Optiray 320 ml50 TECHNIQUE: Oral contrast was given. After the administration of 100 contrast, 5 mm thick sections acquired from the diaphragms to the symphysis. 5 mm thick coronal and sagittal reformats were acquired. For radia tion dose reduction, the following was used: automated exposure control, adjustment of mA and/or kV according to patient size. COMPARISON: 07/21/2019. Correlation is also made with ultrasound examinations 09/05/2019 and 08/14/20 19 FINDINGS: Image quality: Excellent. ABDOMEN: Lung bases: Lung bases are clear. Heart size is normal. A small hiatal hernia is incidentally note d. Solid organs: Fatty liver infiltration is seen. The liver demonstrates normal size. The spleen is wit hin normal limits for size, without focal lesions. Gallbladder wall does not appear thickened. Alphonse iary system is non dilated. Pancreas enhances normally. No adrenal nodules. Kidneys demonstrate no rmal size and enhancement, without hydronephrosis. Peritoneum and bowel: Generalized wall thickening is seen involving the distal colon, which begins at the level of the transverse colon, as on series 6 image 12. Minimal surrounding inflammatory changes are seen. There is also mild degree of wall thickening seen involving the descending colon, as on se ana rosa 6 image 28. No dilated loops of small bowel are seen. No free fluid or air. Minimal sigmoid div erticulosis is seen. Nodes and vessels: No retroperitoneal or mesenteric adenopathy by size criteria. Aorta and inferior vena cava are normal in size. Miscellaneous: A mild fat-containing periumbilical hernia is seen. PELVIS: Genitourinary: Bladder wall thickness is normal. The uterus demonstrates an unremarkable appearance for age. No adnexal masses are seen. Miscellaneous: No inguinal hernias or adenopathy. Within the anterior abdominal wall of the pelvis, there is a focal fluid collection seen, as on series 3 image 81 that measures 3.9 x 3.[address] axial dimension. This is slightly larger in size than on the prior CT examination. Bones: No suspicious bony lesions. No vertebral body compression fractures. Minimal levoconvex sco liotic curvature is seen. IMPRESSION: Wall thickening is seen throughout the distal colon as well as within a portion of the a scending colon. Please consider infectious and inflammatory causes. Ischemia is much less likely. Within the anterior abdominal wall of the pelvis, there is a growing fluid collection. Please conside r seroma versus chronic infection. Incidental note is made of: Small hiatal hernia Fatty liver infiltration Fat-containing periumbilical hernia Minimal sigmoid diverticulosis Reviewed by: Jay Aparicio MD on 03/31/2020 4:42 PM AKDT Approved by: Jay Aparicio MD on 03/31/2020 4:42 PM AKDT Station ID: [id number]
[2020-03-31 17:48] LABS: RAPID STREP SCREEN Negative (Negative)
[2020-03-31] MEDS ORDERED: HALOPERIDOL 5 MG/ML VIAL IVP STA (18:09)
[2020-03-31] MEDS ORDERED: DICYCLOMINE 10 MG CAPSULE PO STA (18:09)
--- NOTE | 2020-03-31 18:12 | ED Physician Documentation ---
ED Addendum - Addendum Addendum: 03/31/20 18:11 29-year-old female presents to the emergency department with abdominal pain. I received signout from Dr. Pal awaiting CT scan. She does appear to have colonic wall thickening on CT scan. Her mother does have Crohn's disease. Patient had a reportedly normal colonoscopy approximately 5 months ago. She does utilize marijuana daily. She does not routinely take her metformin. She states that she does not routinely check her blood sugars. Patient feels much better after Bentyl and haloperidol. Possible this could be related to cannabinoid use? Possible colitis on CT scan, will place on Cipro and Flagyl. She is penicillin allergic. Could be inflammatory bowel disease as well. Patient could also have Gastroparesis. Tolerating p.o. well. Patient counseled regarding signs and symptoms for which I believe and urgent re- evaluation would be necessary. Patient with good understanding of and agreement to plan and is comfortable going home at this time This document was made in part using voice recognition software. While efforts are made to proofread this document, sound alike and grammatical errors may occur. Departure - Departure Disposition: 01 Home, Self Care Clinical Impression: Colitis, Subcutaneous cyst Abdominal pain Qualifiers: Abdominal location: unspecified location Qualified Code(s): R10.9 - Unspecified abdominal pain Condition: Good Instructions: ED Abdominal Pain Unkn Cause Follow-Up: your,doctor in 3 days [Other] Prescriptions: Dicyclomine [Bentyl] 10 mg PO QID PRN #20 capsule PRN Reason: Abdominal Pain Ciprofloxacin HCl [Cipro] 500 mg PO BID #20 tablet metroNIDAZOLE [Flagyl] 500 mg PO TID #30 tablet Metoclopramide [Reglan] 10 mg PO Q6H PRN #20 tablet PRN Reason: Nausea / Vomiting Comments: Return if you worsen. Use the medications as prescribed. Follow-up with your doctor for further care. Drink plenty of fluids and rest. Make sure to take your metformin regularly as well. Discharge Date/Time: 03/31/20 19:31
[2020-03-31] MEDS ORDERED: CIPROFLOXACIN 250 MG TABLET PO STA (19:01)
[2020-03-31] MEDS ORDERED: metroNIDAZOLE 250 MG TABLET PO STA (19:01)
[2020-03-31 19:22] VITALS: BP 119/78
== END 2020-03-31 19:31 | disposition home or self-care (01) ==
LOC: ED 14:01
DX: K52.9 Noninfective gastroenteritis and colitis, unspecified (principal); J03.90 Acute tonsillitis, unspecified; E86.0 Dehydration; L72.9 Follicular cyst of the skin and subcutaneous tissue, unspecified; K42.9 Umbilical hernia without obstruction or gangrene; K76.0 Fatty (change of) liver, not elsewhere classified; E11.65 Type 2 diabetes mellitus with hyperglycemia; Z79.84 Long term (current) use of oral hypoglycemic drugs; Z91.14 Patient's other noncompliance with medication regimen; F12.90 Cannabis use, unspecified, uncomplicated; F17.200 Nicotine dependence, unspecified, uncomplicated; Z88.0 Allergy status to penicillin; Z83.79 Family history of other diseases of the digestive system
CPT/HCPCS: 36415; 74177; 80053; 81003; 81025; 83690; 85025; 87070; 87077; 87430; 96361; 96374; 96375; 99284; A9270; J1815; Q9967; 81001; 87086

== ENCOUNTER 2020-06-18 12:52 | Emergency (ER) | payer MEDICAID ==
[2020-06-18 13:13] VITALS: BP 134/95
--- NOTE | 2020-06-18 13:20 | ED Physician Documentation ---
History of Present Illness - Stated complaint Stated Complaint: FLUE LIKE SYMPTOMS - Chief complaint Chief Complaint: Fever - History obtained from History obtained from: Patient - Additonal information Additional information: 30-year-old female presents the emergency department with concerns that she may have COVID-19. She also presents with her 2 daughters in attendance. Patient reports that for 3 days she has had cough intermittent fevers, body aches chills and chest tightness. She denies loss of taste or smell. She denies chest pain or syncope. She reports that she is a heavy tobacco user but has no history of asthma or COPD. She describes her cough as mostly dry. Her 2 daughters with her have had intermittent fevers and a dry cough as well. No nausea vomiting or diarrhea. They did attend hollowing festivities over the weekend. Review of Systems Constitutional: reports: Fever, Chills, Myalgias, Fatigue Eyes: denies: Loss of vision, Decreased vision Ears: denies: Loss of hearing, Ear pain Nose: denies: Rhinorrhea / runny nose Throat: denies: Dental pain / toothache, Oral lesions / sores, Sore throat Cardiac: reports: Other (chest tightness). denies: Chest pain / pressure, Palpitations, Pedal edema, Calf pain Respiratory: reports: Dyspnea, Cough. 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: Miscarriage(s) : None HEENT: None Psych: Depression, Anxiety Musculoskeletal: None Derm: None - Past Surgical History Past Surgical History: Yes General: Other /OCCUPATIONAL MEDICINE PHYSICIAN: section, Tubal ligation HEENT: Myringotomy (tubes) - Present Medications Home Medications: Ambulatory Orders Medication Instructions Recorded Confirmed Blood Sugar Diagnostic [Glucometer 1 each ACHS #120 strip 06/05/18 03/31/20 Strips] Blood-Glucose Meter [Glucometer] 1 each ONCE #1 each 06/05/18 08/23/19 Lancets 1 each ACHS #120 each 06/05/18 03/31/20 metFORMIN [Glucophage] 500 mg PO BIDWM #60 tablet 06/05/18 03/31/20 Ondansetron Odt [Zofran] 4 mg TL Q6H PRN #10 tablet 08/24/19 03/31/20 Mupirocin 1 gm EBENEZER TID #2 oin.pf.rudy 09/05/19 03/31/20 Ciprofloxacin HCl [Cipro] 500 mg PO BID #20 tablet 03/31/20 Dicyclomine [Bentyl] 10 mg PO QID PRN #20 capsule 03/31/20 Metoclopramide [Reglan] 10 mg PO Q6H PRN #20 tablet 03/31/20 metroNIDAZOLE [Flagyl] 500 mg PO TID #30 tablet 03/31/20 - Allergies Allergies/Adverse Reactions: Allergies Allergy/AdvReac Type Severity Reaction Status Date / Time cefaclor [From Ceclor] Allergy Unknown Verified 06/18/20 13:10 Penicillins Allergy Unknown Verified 06/18/20 13:10 acetaminophen [From Vicodin] AdvReac Itching Verified 06/18/20 13:10 hydrocodone [From Vicodin] AdvReac Itching Verified 06/18/20 13:10 - Social History Does the pt smoke?: Yes Smoking Status: Current every day smoker Does the pt drink ETOH?: Yes Does the pt have substance abuse?: Yes - Immunizations Immunizations are current?: Yes - POLST Patient has POLST: No PD ED PE EXPANDED - General General: Alert, No acute distress, Other (obese.) - HEENT HEENT: Atraumatic, PERRL, Moist mucous membranes, Pharynx normal - Neck Neck: Supple w/out meningeal sx. No: Adenopathy, No tenderness - Cardiac Cardiac: Regular Rate, Regular Rhythm, Radial strong equal, Cap refill < 2 sec. No: Murmur Present - Respiratory Respiratory: Clear to ausultation marilee. No: Distress, Labored, Wheezing - Abdomen Abdomen: Normal Bowel sounds. No: Tender to palpation - Extremities Extremities: Normal - Neuro Neuro: Alert and Oriented X 3, CNII-XII intact - GCS Eye Opening: Spontaneous Motor: Obeys Commands Verbal: Oriented Total: 15 Results - Vitals Vitals: Vital Signs - 24 hr 06/18/20 13:10 Temperature 36.6 C Heart Rate 98 Respiratory 18 Rate Blood Pressure 134/95 H O2 Saturation 98 Oxygen O2 Source Room air PD MEDICAL DECISION MAKING - ED course Complexity details: reviewed results, re-evaluated patient, considered differential, d/w patient, d/w family ED course: 30-year-old female presents to the emergency department with her 2 younger children for evaluation of cough fevers body aches and concern for COVID-19 infection. This patient appears well however. She has normal saturations and full cardiopulmonary excursion. No adventitious breath sounds were noted. She is a smoker and we did discuss that smoking cessation will be important in the long-term. There is no indication for hospitalization of this patient at this time. A full bio panel PCR is pending. Patient was advised to remain at home in quarantine until the test results are known. Emergent return precautions discussed Departure - Departure Disposition: 01 Home, Self Care Clinical Impression: Upper respiratory disease Condition: Stable Record reviewed to determine appropriate education?: Yes Comments: Jessi we are testing you today for COVID-19 as well as a number of other viruses that typically cause upper respiratory infection. Please remain at home in quarantine until your test results are known. I do advise that in the long- term you stop smoking as this will help improve your ability to recover from minor coughs and colds in the future. The only reason to return to the emergency department is if you have severe respiratory distress at home. If you feel that you need to return to the emergency department please call in advance. I do recommend that you take Tylenol or ibuprofen [id number] for body aches and fevers. Please stay well-hydrated
[2020-06-18 14:14] LABS: C. PNEUMONIAE- RESP PCR PANEL NOT DETECTED
== END 2020-06-18 13:40 | disposition home or self-care (01) ==
LOC: ED 12:52
DX: J06.9 Acute upper respiratory infection, unspecified (principal); Z20.828 Contact with and (suspected) exposure to other viral communicable diseases; F17.200 Nicotine dependence, unspecified, uncomplicated; E11.9 Type 2 diabetes mellitus without complications; Z79.84 Long term (current) use of oral hypoglycemic drugs
CPT/HCPCS: 0202U; 99283; 99284

== ENCOUNTER 2020-08-25 19:21 | Emergency (ER) | payer MEDICAID ==
[2020-08-25 20:07] LABS: BASOPHILS % (AUTO) 0.3 %; EOSINOPHILS # (AUTO) 0.2 10^3/uL (0.0-0.7); EOSINOPHILS % (AUTO) 2.9 %; HGB - HEMOGLOBIN 15.7 g/dL (12.0-16.0); LYMPHOCYTES # (AUTO) 2.3 10^3/uL (1.5-3.5); LYMPHOCYTES % (AUTO) 30.4 %; MEAN CORPUSCULAR HEMOGLOBIN 30.1 pg (27.0-31.0); MEAN CORPUSCULAR HGB CONC 34.4 g/dL (32.0-36.0); MEAN CORPUSCULAR VOLUME 87.5 fL (81.0-99.0); MEAN PLATELET VOLUME 10.4 fL (7.9-10.8); MONOCYTES # (AUTO) 0.5 10^3/uL (0.0-1.0); MONOCYTES % (AUTO) 6.2 %; NEUTROPHILS # (AUTO) 4.5 10^3/uL (1.5-6.6); NEUTROPHILS % (AUTO) 60.1 %; PLT - PLATELET COUNT 278 10^3/uL (130-450); RED BLOOD COUNT 5.21 10^6/uL (4.20-5.40); RED CELL DISTRIBUTION WIDTH 11.4 % (12.0-15.0); WHITE BLOOD COUNT 7.5 x10^3/uL (4.8-10.8)
[2020-08-25 20:14] LABS: BILIRUBIN,URINE NEGATIVE (NEGATIVE); GLUCOSE, URINE (UA) >=1000 mg/dL (NEGATIVE); KETONES,URINE (UA) TRACE mg/dL (NEGATIVE); LEUKOCYTE ESTERASE, URINE NEGATIVE (NEGATIVE); NITRITE,URINE NEGATIVE (NEGATIVE); OCCULT BLOOD,URINE SMALL (NEGATIVE); PH,URINE 5.5 PH (5.0-7.5); PROTEIN,URINE TRACE mg/dL (NEGATIVE); UROBILINOGEN,URINE 0.2 (NORMAL) E.U./dL (NORMAL)
[2020-08-25 20:17] LABS: HCG UR QUAL NEGATIVE
[2020-08-25 20:17] LABS: CLARITY,URINE CLEAR (CLEAR)
[2020-08-25] MEDS ORDERED: MORPHINE 2 MG/ML CARPUJECT IVP STA (20:20)
--- NOTE | 2020-08-25 20:20 | ED Physician Documentation ---
PD HPI ABD PAIN - Stated complaint Stated Complaint: ABDOMINAL PX - Chief complaint Chief Complaint: Abd Pain - History obtained from History obtained from: Patient - History of Present Illness Timing - onset: Today Timing - duration: Days (1) Timing - details: Gradual onset Pain level max: 9 Pain level now: 9 Quality: Aching, Pain Location: Suprapubic. No: All over / everywhere, RUQ, Epigastric, LUQ, Periumbilical, RLQ, LLQ Radiation: No: Chest, , Lower back, Left flank, Left shoulder, Right flank, Right shoulder, Upper back Improved by: Laying still Worsened by: Moving, Palpation Associated symptoms: No: Fever, Nausea, Vomiting, Hematemesis, Diarrhea, Constipation - Additional information Additional information: 30-year-old female presents to the emergency department stating that she has 2 intra-abdominal abscesses. She is unclear if they are in the abdominal wall or in the intra-abdominal cavity. She states increasing pain today. She is awaiting an appointment in [place] for potential drainage. No fevers. No chills. No vomiting. No possibility of . No vaginal bleeding or d ischarge. No urinary symptoms. 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(s) : None HEENT: None Psych: Depression, Anxiety Musculoskeletal: None Derm: None - Past Surgical History Past Surgical History: Yes General: Other /DROP WIRE ALIGNER: section, Tubal ligation HEENT: Myringotomy (tubes) - Present Medications Home Medications: Ambulatory Orders Medication Instructions Recorded Confirmed Blood Sugar Diagnostic [Glucometer 1 each ACHS #120 strip 06/05/18 08/25/20 Strips] Blood-Glucose Meter [Glucometer] 1 each ONCE #1 each 06/05/18 08/25/20 Lancets 1 each ACHS #120 each 06/05/18 08/25/20 metFORMIN [Glucophage] 500 mg PO BIDWM #60 tablet 06/05/18 08/25/20 Acetaminophen [Acetaminophen Extra 1,000 mg PRN 08/25/20 Strength] Ibuprofen 400 mg PRN 08/25/20 Oxycodone HCl/Acetaminophen 1 - 2 each PO Q6H PRN #14 tablet 08/25/20 [Percocet 5-325 mg Tablet] - Allergies Allergies/Adverse Reactions: Allergies Allergy/AdvReac Type Severity Reaction Status Date / Time cefaclor [From Ceclor] Allergy Unknown Verified 08/25/20 19:27 Penicillins Allergy Unknown Verified 08/25/20 19:27 acetaminophen [From Vicodin] AdvReac Itching Verified 08/25/20 19:27 hydrocodone [From Vicodin] AdvReac Itching Verified 08/25/20 19:27 - Social History Does the pt smoke?: Yes Smoking Status: Current every day smoker Does the pt drink ETOH?: Yes Does the pt have substance abuse?: Yes Substance Use and Type: Marijuana - Immunizations Immunizations are current?: Yes - POLST Patient has POLST: No PD ED PE NORMAL - Vitals Vital signs reviewed: Yes - General General: Alert and oriented X 3, No acute distress - HEENT HEENT: Moist mucous membranes - Neck Neck: Supple, no meningeal sign - Cardiac Cardiac: RRR - Respiratory Respiratory: No respiratory distress, Clear bilaterally - Abdomen Abdomen: Soft, Non distended, Other (Mild tender palpation suprapubic. No palpable abscess. Exam limited secondary to body habitus. Normal skin exam. No drainage. No fluctuance. No erythema.) - Derm Derm: Warm and dry - Neuro Neuro: Alert and oriented X 3 - Psych Psych: Normal mood, Normal affect Results - Vitals Vitals: Vital Signs - 24 hr 08/25/20 08/25/20 19:23 20:01 Temperature 36.2 C L 36.4 C L Heart Rate 97 96 Respiratory 18 19 Rate Blood Pressure 140/92 H 142/85 H O2 Saturation 98 98 Oxygen O2 Source Room air - Labs Labs: Laboratory Tests 08/25/20 08/25/20 08/25/20 19:50 19:50 19:59 WBC 7.5 RBC 5.21 Hgb 15.7 Hct 45.6 MCV 87.5 MCH 30.1 MCHC 34.4 RDW 11.4 L Plt Count 278 MPV 10.4 Neut # (Auto) 4.5 Lymph # (Auto) 2.3 [place] # (Auto) 0.5 Eos # (Auto) 0.2 Baso # (Auto) 0.0 Absolute Nucleated RBC 0.00 Nucleated RBC % 0.0 Sodium Potassium Chloride Carbon Dioxide Anion Gap BUN Creatinine Estimated GFR (MDRD) Glucose Calcium Total Bilirubin AST ALT Alkaline Phosphatase Total Protein Albumin Globulin Albumin/Globulin Ratio Lipase Urine Color YELLOW Urine Clarity CLEAR Urine pH 5.5 Ur Specific [place] >=1.030 H Urine Protein TRACE Urine Glucose (UA) >=1000 H Urine Ketones TRACE Urine Occult Blood SMALL H Urine Nitrite NEGATIVE Urine Bilirubin NEGATIVE Urine Urobilinogen 0.2 (NORMAL) Ur Leukocyte Esterase NEGATIVE Urine RBC 0-5 Urine WBC 0-3 Ur Squamous Epith Cells FEW Squamous Urine Bacteria Rare Urine Mucus Few Strands Ur Microscopic Review INDICATED Urine Culture Comments NOT INDICATED Urine HCG, Qual NEGATIVE 08/25/20 20:22 WBC RBC Hgb Hct MCV MCH MCHC RDW Plt Count MPV Neut # (Auto) Lymph # (Auto) [place] # (Auto) Eos # (Auto) Baso # (Auto) Absolute Nucleated RBC Nucleated RBC % Sodium 137 Potassium 3.6 Chloride 99 L Carbon Dioxide 24 Anion Gap 14.0 H BUN 11 Creatinine 0.4 Estimated GFR (MDRD) 186 Glucose 259 H Calcium 8.8 Total Bilirubin 0.7 AST 14 ALT 16 Alkaline Phosphatase 65 Total Protein 6.7 Albumin 3.7 Globulin 3.0 Albumin/Globulin Ratio 1.2 Lipase 25 Urine Color Urine Clarity Urine pH Ur Specific [place] Urine Protein Urine Glucose (UA) Urine Ketones Urine Occult Blood Urine Nitrite Urine Bilirubin Urine Urobilinogen Ur Leukocyte Esterase Urine RBC Urine WBC Ur Squamous Epith Cells Urine Bacteria Urine Mucus Ur Microscopic Review Urine Culture Comments Urine HCG, Qual - Rads (name of study) CT abdomen pelvis Radiology: Prelim report reviewed, EMP read contemporaneously, See rad report PD MEDICAL DECISION MAKING - ED course Complexity details: reviewed old records, reviewed results, re-evaluated patient, considered differential, d/w patient ED course: 30-year-old female with a enlarging fluid collection in the anterior right abdominal wall. Likely seroma. Doubt chronic infection. No leukocytosis. No fever. No evidence of infection. Will place on pain medication for home and have her follow-up with surgery for further care. May benefit from IR drainage? Patient requests the name of a local female surgeon. Patient counseled regarding signs and symptoms for which I believe and urgent re-evaluation would be necessary. Patient with good understanding of and agreement to plan and is comfortable going home at this time This document was made in part using voice recognition software. While efforts are made to proofread this document, sound alike and grammatical errors may occur. IMPRESSION: 1. Previously described 3.9 x 3.2 cm fluid collection within anterior right abdominal wall now measures 4.3 x 3.4 cm in size. No peripheral wall enhancement is seen. Finding likely represents seroma. Chronic infection cannot be entirely excluded. 2. No peritoneal free fluid of free air. No significant bowel wall thickening is noted on the current study. No peritoneal abscess collection. 3. Hepatic steatosis unchanged from prior study. Small umbilical hernia containing fat only. Departure - Departure Disposition: Home, Self Care Clinical Impression: Seroma Abdominal pain Qualifiers: Abdominal location: unspecified location Qualified Code(s): R10.9 - Unspecified abdominal pain Condition: Good Instructions: ED Abdominal Pain Unkn Cause Follow-Up: Michael Shirley MD [Provider Admit Priv/Credential] - Within 1 week Prescriptions: Oxycodone HCl/Acetaminophen [Percocet 5-325 mg Tablet] 1 - 2 each PO Q6H PRN #14 tablet PRN Reason: pain Comments: Return if you worsen. Follow up with your doctor for further care. Do not drink alcohol or drive while on narcotic pain medicine. Note that many narcotic pain relievers also contain tylenol/acetaminophen. Please ensure that your total dose of acetaminophen from all sources does not exceed 3 grams (3000mg) per day. You may constipated on this medication, take a stool softener such as "Colace" twice a day while you are on it. Also recommend a raqu-[id number] laxative such as senna or MiraLAX any day that you do not have a bowel movement. If you received narcotic pain medication in the emergency department, do not drive or operate machinery for the next 24 hours.
[2020-08-25 20:27] LABS: BACTERIA,URINE Rare /HPF (None Seen); MUCUS,URINE Few Strands; RBC,URINE 0-5 /HPF (0-5); SQUAMOUS EPITHELIAL CELL,UR FEW Squamous (<= Few)
[2020-08-25] MEDS ORDERED: IOVERSOL 320 100 ML VIAL IVP ONE ×2 (20:46→21:12)
[2020-08-25 20:47] LABS: ALBUMIN 3.7 g/dL (3.2-5.5); ALBUMIN/GLOBULIN RATIO 1.2 (1.0-2.2); BILIRUBIN,TOTAL 0.7 mg/dL (0.2-1.0); CALCIUM 8.8 mg/dL (8.5-10.3); CREATININE 0.4 mg/dL (0.4-1.0); TOTAL PROTEIN 6.7 g/dL (6.7-8.2)
--- NOTE | 2020-08-25 21:30 | CT Report ---
PROCEDURE: Abdomen/Pelvis W INDICATIONS: RLQ abd pain, states has 2 "abscesses" unknow loca CONTRAST: IV CONTRAST: Optiray 320 ml: 100 PO CONTRAST: *NO PO CONTRAST TECHNIQUE: After the administration of IV contrast, 5 mm thick sections acquired from the diaphragms to the symp hysis. 5 mm thick coronal and sagittal reformats were acquired. For radiation dose reduction, the f ollowing was used: automated exposure control, adjustment of mA and/or kV according to patient size. COMPARISON: None CT of abdomen and pelvis dated 03/31/2020 FINDINGS: Image quality: Excellent. ABDOMEN: Lung bases: Lung bases are clear. Heart size is normal. Solid organs: Liver and spleen are normal in size and enhancement. Mild hepatic steatosis is seen. Gallbladder is within normal limits Biliary system is non dilated. Pancreas enhances normally. No adrenal nodules. Kidneys demonstrate normal size and enhancement, without hydronephrosis. Peritoneum and bowel: Bowel loops demonstrate normal wall thickness and caliber. No free fluid or a ir. Nodes and vessels: No retroperitoneal or mesenteric adenopathy by size criteria. Aorta and inferior vena cava are normal in size. Miscellaneous: Small umbilical hernia containing fat only. There is a well-circumscribed fluid collec tion in right anterior abdominal wall just lateral to midline and superficial to the right rectus abd ominous muscle measures up to 4.3 x 3.4 x 3.3 cm in size with mild adjacent fat stranding. PELVIS: Genitourinary: Bladder wall thickness is normal. Miscellaneous: No inguinal hernias or adenopathy. Small benign-appearing bilateral inguinal lymph no nayan are seen. No gross abnormality is seen in uterus and bilateral adnexa. Bones: No suspicious bony lesions. No vertebral body compression fractures. IMPRESSION: 1. Previously described 3.9 x 3.2 cm fluid collection within anterior right abdominal wall now measur es 4.3 x 3.4 cm in size. No peripheral wall enhancement is seen. Finding likely represents seroma. Ch ronic infection cannot be entirely excluded. 2. No peritoneal free fluid of free air. No significant bowel wall thickening is noted on the current study. No peritoneal abscess collection. 3. Hepatic steatosis unchanged from prior study. Small umbilical hernia containing fat only. Reviewed by: Pepito Trejo MD on 08/25/2020 9:28 PM PST Approved by: Pepito Trejo MD on 08/25/2020 9:28 PM [facility] Station ID: [id number]
[2020-08-25] MEDS ORDERED: oxyCODONE 5 MG TABLET PO STA (21:57)
[2020-08-25 22:22] VITALS: BP 110/67
== END 2020-08-25 22:25 | disposition home or self-care (01) ==
LOC: ED 19:21
DX: R19.09 Other intra-abdominal and pelvic swelling, mass and lump (principal); E11.9 Type 2 diabetes mellitus without complications; Z79.84 Long term (current) use of oral hypoglycemic drugs; F17.200 Nicotine dependence, unspecified, uncomplicated
CPT/HCPCS: 74177; 80053; 81001; 81025; 83690; 85025; 96374; 99284; A9270; Q9967; 81003; 87086

== ENCOUNTER 2020-10-02 08:00 | Outpatient (CLI) | payer MEDICAID ==
[2020-10-02 12:47] LABS: BASOPHILS % (AUTO) 0.5 %; EOSINOPHILS # (AUTO) 0.4 10^3/uL (0.0-0.7); EOSINOPHILS % (AUTO) 4.8 %; LYMPHOCYTES % (AUTO) 34.8 %; MEAN CORPUSCULAR HEMOGLOBIN 29.6 pg (27.0-31.0); MEAN CORPUSCULAR VOLUME 89.5 fL (81.0-99.0); MEAN PLATELET VOLUME 10.4 fL (7.9-10.8); MONOCYTES # (AUTO) 0.6 10^3/uL (0.0-1.0); NEUTROPHILS # (AUTO) 4.6 10^3/uL (1.5-6.6); NEUTROPHILS % (AUTO) 52.4 %; PLT - PLATELET COUNT 293 10^3/uL (130-450); RED BLOOD COUNT 5.07 10^6/uL (4.20-5.40); RED CELL DISTRIBUTION WIDTH 11.7 % (12.0-15.0); WHITE BLOOD COUNT 8.7 x10^3/uL (4.8-10.8)
[2020-10-02 14:46] LABS: ALBUMIN 3.9 g/dL (3.2-5.5); ALBUMIN/GLOBULIN RATIO 1.3 (1.0-2.2); ALKALINE PHOSPHATASE 50 IU/L (42-121); ALT ALANINE AMINOTRANSFERASE 16 IU/L (10-60); AST ASPARTATE AMINOTRANSFERASE 14 IU/L (10-42); BILIRUBIN,TOTAL 0.5 mg/dL (0.2-1.0); BUN - BLOOD UREA NITROGEN 17 mg/dL (6-20); CALCIUM 9.6 mg/dL (8.5-10.3); CARBON DIOXIDE - CO2 23 mmol/L (21-32); CHLORIDE 101 mmol/L (101-111); CHOL/HDL RATIO 4.4 (<4.4); CHOLESTEROL 201 mg/dL; CREATININE 0.4 mg/dL (0.4-1.0); GLUCOSE 281 mg/dL (70-100); HDL CHOLESTEROL 46 mg/dL; LDL CHOLESTEROL,CALCULATED 127 mg/dL; LDL/HDL RATIO 2.8 (<4.4); VLDL CHOLESTEROL 28 mg/dL
[2020-10-02 16:01] LABS: HEMOGLOBIN A1c% 10.4 % (4.27-6.07)
== END 2020-10-02 23:59 | disposition home or self-care (01) ==
LOC: LAB.WCP 08:00
PROVIDERS: ATTEND Nurse Practitioner Family
DX: E11.8 Type 2 diabetes mellitus with unspecified complications (principal); E66.01 Morbid (severe) obesity due to excess calories
CPT/HCPCS: 36415; 80053; 80061; 83036; 83721; 84443; 85025

== ENCOUNTER 2021-02-09 15:59 | Emergency (ER) | payer MEDICAID ==
[2021-02-09] MEDS ORDERED: ONDANSETRON 4 MG/2 ML VIAL IVP STA (16:22)
[2021-02-09] MEDS ORDERED: SODIUM CHLORIDE 0.9% 1,000 ML IV STA (16:22)
[2021-02-09 16:40] LABS: BASOPHILS % (AUTO) 0.3 %; EOSINOPHILS # (AUTO) 0.2 10^3/uL (0.0-0.7); EOSINOPHILS % (AUTO) 2.4 %; HCT - HEMATOCRIT 43.7 % (37.0-47.0); HGB - HEMOGLOBIN 15.6 g/dL (12.0-16.0); LYMPHOCYTES # (AUTO) 1.4 10^3/uL (1.5-3.5); LYMPHOCYTES % (AUTO) 20.4 %; MEAN CORPUSCULAR HEMOGLOBIN 30.6 pg (27.0-31.0); MEAN CORPUSCULAR HGB CONC 35.7 g/dL (32.0-36.0); MEAN CORPUSCULAR VOLUME 85.7 fL (81.0-99.0); MEAN PLATELET VOLUME 9.5 fL (7.9-10.8); MONOCYTES # (AUTO) 0.4 10^3/uL (0.0-1.0); MONOCYTES % (AUTO) 5.4 %; NEUTROPHILS % (AUTO) 71.2 %; PLT - PLATELET COUNT 331 10^3/uL (130-450); RED CELL DISTRIBUTION WIDTH 11.5 % (12.0-15.0); WHITE BLOOD COUNT 7.1 x10^3/uL (4.8-10.8)
[2021-02-09 16:43] LABS: VBG BASE EXCESS -1.6 mmol/L (-2 - +2); VBG HCO3 19.8 mmol/L (23-28); VBG OXYGEN SATURATION 80.8 % (60-80); VBG PCO2 26.3 mmHg (41-51); VBG PH 7.494 (7.31-7.41); VBG PO2 39.4 mmHg (25-47); VBG TOTAL CO2 20.6 mmol/L (24-29)
[2021-02-09 16:54] LABS: ALBUMIN 4.7 g/dL (3.2-5.5); ALBUMIN/GLOBULIN RATIO 1.5 (1.0-2.2); ALKALINE PHOSPHATASE 50 IU/L (42-121); ALT ALANINE AMINOTRANSFERASE 47 IU/L (10-60); AST ASPARTATE AMINOTRANSFERASE 25 IU/L (10-42); BILIRUBIN,TOTAL 0.7 mg/dL (0.2-1.0); BUN - BLOOD UREA NITROGEN 5 mg/dL (6-20); CALCIUM 9.7 mg/dL (8.5-10.3); CARBON DIOXIDE - CO2 20 mmol/L (21-32); CHLORIDE 106 mmol/L (101-111); CREATININE 0.6 mg/dL (0.4-1.0); GFR - MDRD 117 (>89); GLUCOSE 237 mg/dL (70-100); LIPASE 21 U/L (22-51); MAGNESIUM 1.9 mg/dL (1.7-2.8); POTASSIUM 3.3 mmol/L (3.5-5.0); SODIUM 138 mmol/L (135-145); TOTAL PROTEIN 7.9 g/dL (6.7-8.2)
[2021-02-09 17:02] LABS: KETONES, SERUM (ACETEST) NEGATIVE (NEGATIVE)
[2021-02-09] MEDS ORDERED: HALOPERIDOL 5 MG/ML VIAL IVP ONE (17:40)
--- NOTE | 2021-02-09 17:40 | ED Physician Documentation ---
PD HPI ABD PAIN - Stated complaint Stated Complaint: NAUSEOUS, PX, NOT EATING - Chief complaint Chief Complaint: Abd Pain - History obtained from History obtained from: Patient - Additional information Additional information: 30-year-old woman with history of type 2 diabetes since age 16, not checking her blood sugars lately. She also uses THC and marijuana products daily to help stimulate appetite and decrease nausea. She has been feeling bad for a while now, she notes some chronic abdominal issues and nausea which are relieved by heat. Starting yesterday and worse today she has a severe bandlike upper abdominal pain radiating to the back associated with severe nausea. 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) : None HEENT: None Psych: Depression, Anxiety Musculoskeletal: None Derm: None - Past Surgical History Past Surgical History: Yes General: Other /CARPET TILE LAYER: section, Tubal ligation HEENT: Myringotomy (tubes) - Present Medications Home Medications: Ambulatory Orders Medication Instructions Recorded Confirmed Blood Sugar Diagnostic [Glucometer 1 each ACHS #120 strip 06/05/18 08/25/20 Strips] Blood-Glucose Meter [Glucometer] 1 each ONCE #1 each 06/05/18 08/25/20 Lancets 1 each ACHS #120 each 06/05/18 08/25/20 metFORMIN [Glucophage] 500 mg PO BIDWM #60 tablet 06/05/18 08/25/20 Acetaminophen [Acetaminophen Extra 1,000 mg PRN 08/25/20 Strength] Ibuprofen 400 mg PRN 08/25/20 Oxycodone HCl/Acetaminophen 1 - 2 each PO Q6H PRN #14 tablet 08/25/20 [Percocet 5-325 mg Tablet] LORazepam [Ativan] 1 mg PO TID PRN #12 tablet 02/09/21 Ondansetron Odt [Zofran] 4 mg TL Q6H PRN #10 tablet 02/09/21 - Allergies Allergies/Adverse Reactions: Allergies Allergy/AdvReac Type Severity Reaction Status Date / Time cefaclor [From Ceclor] Allergy Unknown Verified 02/09/21 16:17 Penicillins Allergy Unknown Verified 02/09/21 16:17 acetaminophen [From Vicodin] AdvReac Itching Verified 02/09/21 16:17 hydrocodone [From Vicodin] AdvReac Itching Verified 02/09/21 16:17 - Social History Does the pt smoke?: Yes Smoking Status: Current every day smoker Does the pt drink ETOH?: Yes Does the pt have substance abuse?: Yes - Immunizations Immunizations are current?: Yes - POLST Patient has POLST: No PD ED PE NORMAL - Vitals Vital signs reviewed: Yes - General General: Alert and oriented X 3, No acute distress - HEENT HEENT: PERRL, EOMI - Neck Neck: Supple, no meningeal sign, No bony TTP - Cardiac Cardiac: RRR, No murmur - Respiratory Respiratory: No respiratory distress, Clear bilaterally - Abdomen Abdomen: Normal bowel sounds, Soft, Non tender, Non distended - Back Back: No CVA TTP, No spinal TTP - Derm Derm: Normal color, Warm and dry - Extremities Extremities: No edema, No calf tenderness / cord - Neuro Neuro: Alert and oriented X 3, Normal speech Results - Vitals Vitals: Vital Signs - 24 hr 02/09/21 02/09/21 16:11 18:17 Temperature 36.7 C Heart Rate 91 83 Respiratory 24 18 Rate Blood Pressure 128/85 H 136/83 H O2 Saturation 98 97 Oxygen O2 Source Room air - Labs Labs: Laboratory Tests 02/09/21 02/09/21 02/09/21 16:35 16:35 16:35 WBC 7.1 RBC 5.10 Hgb 15.6 Hct 43.7 MCV 85.7 MCH 30.6 MCHC 35.7 RDW 11.5 L Plt Count 331 MPV 9.5 Neut # (Auto) 5.0 Lymph # (Auto) 1.4 L [place] # (Auto) 0.4 Eos # (Auto) 0.2 Baso # (Auto) 0.0 Absolute Nucleated RBC 0.00 Nucleated RBC % 0.0 VBG pH 7.494 H VBG pCO2 26.3 L VBG pO2 39.4 VBG HCO3 19.8 L VBG Total CO2 20.6 L VBG O2 Saturation 80.8 H VBG Base Excess -1.6 Sodium 138 Potassium 3.3 L Chloride 106 Carbon Dioxide 20 L Anion Gap 12.0 BUN 5 L Creatinine 0.6 Estimated GFR (MDRD) 117 Glucose 237 H Calcium 9.7 Magnesium 1.9 Total Bilirubin 0.7 AST 25 ALT 47 Alkaline Phosphatase 50 Total Protein 7.9 Albumin 4.7 Globulin 3.2 Albumin/Globulin Ratio 1.5 Lipase 21 L Urine Color Urine Clarity Urine pH Ur Specific [place] Urine Protein Urine Glucose (UA) Urine Ketones Urine Occult Blood Urine Nitrite Urine Bilirubin Urine Urobilinogen Ur Leukocyte Esterase Ur Microscopic Review Urine Culture Comments Urine HCG, Qual Urine Opiates Screen Ur Oxycodone Screen Urine Methadone Screen Ur Propoxyphene Screen Ur Barbiturates Screen Ur Tricyclics Screen Ur Phencyclidine Scrn Ur Amphetamine Screen U Methamphetamines Scrn U Benzodiazepines Scrn Urine Cocaine Screen U Cannabinoids Screen Serum Ketones NEGATIVE 02/09/21 17:44 WBC RBC Hgb Hct MCV MCH MCHC RDW Plt Count MPV Neut # (Auto) Lymph # (Auto) [place] # (Auto) Eos # (Auto) Baso # (Auto) Absolute Nucleated RBC Nucleated RBC % VBG pH VBG pCO2 VBG pO2 VBG HCO3 VBG Total CO2 VBG O2 Saturation VBG Base Excess Sodium Potassium Chloride Carbon Dioxide Anion Gap BUN Creatinine Estimated GFR (MDRD) Glucose Calcium Magnesium Total Bilirubin AST ALT Alkaline Phosphatase Total Protein Albumin Globulin Albumin/Globulin Ratio Lipase Urine Color YELLOW Urine Clarity CLEAR Urine pH 5.5 Ur Specific [place] >=1.030 H Urine Protein NEGATIVE Urine Glucose (UA) NEGATIVE Urine Ketones >=80 H Urine Occult Blood NEGATIVE Urine Nitrite NEGATIVE Urine Bilirubin NEGATIVE Urine Urobilinogen 0.2 (NORMAL) Ur Leukocyte Esterase NEGATIVE Ur Microscopic Review NOT INDICATED Urine Culture Comments NOT INDICATED Urine HCG, Qual NEGATIVE Urine Opiates Screen NEGATIVE Ur Oxycodone Screen NEGATIVE Urine Methadone Screen NEGATIVE Ur Propoxyphene Screen NEGATIVE Ur Barbiturates Screen NEGATIVE Ur Tricyclics Screen NEGATIVE Ur Phencyclidine Scrn NEGATIVE Ur Amphetamine Screen NEGATIVE U Methamphetamines Scrn NEGATIVE U Benzodiazepines Scrn NEGATIVE Urine Cocaine Screen NEGATIVE U Cannabinoids Screen POSITIVE H Serum Ketones PD MEDICAL DECISION MAKING - ED course ED course: History and physical are consistent with cannabinoid hyperemesis syndrome. She was unaware of this entity and the idiosyncrasies of this diagnosis and atypicality of seeking heat were discussed with her. She received some Zofran and then Haldol. She actually had a akathisia type reaction I think with the Haldol and became even more anxious and this was treated with some IV Benadryl. After the Benadryl she felt much better, passed p.o. challenge. She plans to quit marijuana and trial other therapies for her chronic anxiety. Departure - Departure Disposition: 01 Home, Self Care Clinical Impression: Cannabinoid hyperemesis syndrome Condition: Good Record reviewed to determine appropriate education?: Yes Instructions: ED Nausea Vomiting Prescriptions: LORazepam [Ativan] 1 mg PO TID PRN #12 tablet PRN Reason: Anxiety Ondansetron Odt [Zofran] 4 mg TL Q6H PRN #10 tablet PRN Reason: Nausea / Vomiting Comments: As discussed, the cause of your current symptoms is most likely related to frequent marijuana use. Best if you can quit. I am prescribing a short course of nausea and anxiety medicines. As discussed it would be best if you can find other methods to treat your anxiety. Return for new or worsening symptoms. Follow-up with your primary care physician. Do not drink or drive while taking lorazepam.
[2021-02-09 18:34] LABS: MUDS CUTOFF CONCENTRATIONS CUTOFF CONC BELOW:
[2021-02-09 18:37] LABS: GLUCOSE, URINE (UA) NEGATIVE (NEGATIVE); KETONES,URINE (UA) >=80 mg/dL (NEGATIVE); LEUKOCYTE ESTERASE, URINE NEGATIVE (NEGATIVE); NITRITE,URINE NEGATIVE (NEGATIVE); OCCULT BLOOD,URINE NEGATIVE (NEGATIVE); PH,URINE 5.5 PH (5.0-7.5); PROTEIN,URINE NEGATIVE (NEGATIVE); UROBILINOGEN,URINE 0.2 (NORMAL) E.U./dL (NORMAL)
[2021-02-09 18:40] LABS: BILIRUBIN,URINE NEGATIVE (NEGATIVE); CLARITY,URINE CLEAR (CLEAR); HCG UR QUAL NEGATIVE; ICTOTEST,URINE NEGATIVE
[2021-02-09] MEDS ORDERED: diphenhydrAMINE INJ 50 MG/ML VIAL IVP STA (18:43)
[2021-02-09 18:47] LABS: AMPHETAMINE SCREEN,URINE NEGATIVE (NEGATIVE); BARBITURATE SCREEN,UR NEGATIVE (NEGATIVE); BENZODIAZEPINES SCREEN, URINE NEGATIVE (NEGATIVE); COCAINE SCREEN URINE NEGATIVE (NEGATIVE); METHADONE SCREEN, URINE NEGATIVE (NEGATIVE); METHAMPHETAMINES SCREEN, URINE NEGATIVE (NEGATIVE); OPIATE SCREEN, URINE NEGATIVE (NEGATIVE); OXYCODONE SCREEN, URINE NEGATIVE (NEGATIVE); PROPOXYPHENE SCREEN, URINE NEGATIVE (NEGATIVE); THC CANNABINOID SCREEN, URINE POSITIVE (NEGATIVE); TRICYCLIC ANTIDEPRESSANT,URINE NEGATIVE (NEGATIVE)
[2021-02-09 19:50] VITALS: BP 136/85
== END 2021-02-09 19:47 | disposition home or self-care (01) ==
LOC: ED 15:59
DX: R11.2 Nausea with vomiting, unspecified (principal); F12.90 Cannabis use, unspecified, uncomplicated; E11.9 Type 2 diabetes mellitus without complications; Z79.4 Long term (current) use of insulin; F17.200 Nicotine dependence, unspecified, uncomplicated
CPT/HCPCS: 36415; 80053; 80306; 81003; 81025; 82009; 82803; 83690; 83735; 85025; 96361; 96374; 96375; 99283; 99284; J1200; 81001; 87086

== ENCOUNTER 2021-02-18 11:59 | Outpatient (CLI) | payer MEDICAID ==
[2021-02-18 18:30] LABS: THYROID STIMULATING HORMONE 0.66 uIU/mL (0.34-5.60)
[2021-02-18 18:44] LABS: ALBUMIN/GLOBULIN RATIO 1.3 (1.0-2.2); ALKALINE PHOSPHATASE 40 IU/L (42-121); ALT ALANINE AMINOTRANSFERASE 22 IU/L (10-60); AST ASPARTATE AMINOTRANSFERASE 18 IU/L (10-42); BILIRUBIN,TOTAL 0.5 mg/dL (0.2-1.0); BUN - BLOOD UREA NITROGEN < 5 mg/dL (6-20); CALCIUM 9.1 mg/dL (8.5-10.3); CARBON DIOXIDE - CO2 29 mmol/L (21-32); CHLORIDE 100 mmol/L (101-111); CHOL/HDL RATIO 3.1 (<4.4); CHOLESTEROL 147 mg/dL; CREATININE 0.6 mg/dL (0.4-1.0); GFR - MDRD 117 (>89); GLUCOSE 190 mg/dL (70-100); HDL CHOLESTEROL 48 mg/dL; LDL CHOLESTEROL,CALCULATED 83 mg/dL; LDL/HDL RATIO 1.7 (<4.4); POTASSIUM 3.8 mmol/L (3.5-5.0); SODIUM 137 mmol/L (135-145); TOTAL PROTEIN 7.1 g/dL (6.7-8.2); TRIGLYCERIDES 81 mg/dL; VLDL CHOLESTEROL 16 mg/dL
[2021-02-18 18:51] LABS: CREATININE,URINE 282.8 mg/dL; MICROALBUMIN,URINE 1.7 mg/dL (0-300.0)
[2021-02-18 21:00] LABS: ESTIMATED AVERAGE GLUCOSE 180 mg/dL (70-100); HEMOGLOBIN A1c% 7.9 % (4.27-6.07)
== END 2021-02-18 12:00 | disposition home or self-care (01) ==
LOC: LAB.N 11:59
PROVIDERS: ATTEND Physician Assistant Medical
DX: E11.8 Type 2 diabetes mellitus with unspecified complications (principal)
CPT/HCPCS: 36415; 80053; 80061; 82043; 82570; 83036; 83721; 84443

== ENCOUNTER 2021-05-01 16:24 | Outpatient (CLI) | payer MEDICAID ==
--- NOTE | 2021-05-02 08:28 | Ultrasound Report ---
PROCEDURE: Chest INDICATIONS: SUBCUTANEOUS MASS OF ABD WALL TECHNIQUE: Real-time scanning was performed, and a suitable site was marked by the plastic boat patcher for thoracentesis to be performed by the referring clinician. COMPARISON: None. FINDINGS: In the deep subcutaneous fat of the midline pelvis is a complex fluid collection with multiple echoge byron debris. These fluid collections measure 4.1 x 3.1 x 4.7 cm compared to 2.7 x 2.1 x 3.6 cm and the second measures 1.5 x 1.4 x 2.4 cm compared to 2.0 x 1.7 x 1.3 cm. IMPRESSION: Abdominal wall cyst with debris has increased in size compared to the prior ultrasound o n 09/05/2019. Reviewed by: Floyd Urban on 05/02/2021 8:27 AM PDT Approved by: Floyd Urban on 05/02/2021 8:27 AM PDT Station ID: [id number]
== END 2021-05-01 16:25 | disposition home or self-care (01) ==
LOC: DI 16:24
PROVIDERS: ATTEND Physician Assistant Medical
DX: R22.2 Localized swelling, mass and lump, trunk (principal)

== ENCOUNTER 2021-08-06 13:37 | Outpatient (CLI) | payer MEDICAID ==
--- NOTE | 2021-08-06 15:01 | XRAY Report ---
PROCEDURE: Shoulder 2 View RT INDICATIONS: R SHOULDER PX TECHNIQUE: 2 views of the shoulder were acquired. COMPARISON: None. FINDINGS: BONES: No acute, displaced fracture. The joint spaces are maintained. SOFT TISSUES: No focal abnormality or appreciable pneumothorax. IMPRESSION: 1.No acute osseous abnormality. Reviewed by: Zachariah Woods MD on 08/06/2021 2:59 PM PST Approved by: Zachariah Woods MD on 08/06/2021 2:59 PM [facility] Station ID: [id number]
== END 2021-08-06 23:59 ==
LOC: DI.N 13:37
PROVIDERS: ATTEND Family Medicine
DX: M25.511 Pain in right shoulder (principal)

== ENCOUNTER 2021-09-30 07:51 | Outpatient (CLI) | payer MEDICAID ==
--- NOTE | 2021-09-30 16:00 | XRAY Report ---
PROCEDURE: Shoulder 3 View RT INDICATIONS: RIGHT SHOULDER PAIN TECHNIQUE: 4 views of the shoulder were acquired. COMPARISON: None. FINDINGS: No fracture or dislocation. Normal position of the humeral head. Glenohumeral and acromioclavicular j oint spaces are maintained. Normal coracoclavicular distance. No suspicious lytic or blastic osseous lesion. Regional soft tissues are unremarkable. IMPRESSION: Normal shoulder radiographs. Reviewed by: Mitchel Lyn MD on 09/30/2021 3:59 PM PST Approved by: Mitchel Lyn MD on 09/30/2021 3:59 PM [facility] Station ID: [id number]
== END 2021-09-30 07:52 | disposition home or self-care (01) ==
LOC: DI.WOS 07:51
PROVIDERS: ATTEND Physician Assistant
DX: M25.511 Pain in right shoulder (principal)

== ENCOUNTER 2021-10-22 09:02 | Outpatient (CLI) | payer MEDICAID ==
[2021-10-22 09:57] LABS: CREATININE 0.5 mg/dL (0.4-1.0); POTASSIUM 4.1 mmol/L (3.5-5.0)
[2021-10-22 10:38] LABS: CREATININE,URINE 68.3 mg/dL; MICROALBUM/CREATININE RATIO,UR 17.6 ug/mg (<30.0); MICROALBUMIN,URINE 1.2 mg/dL (0-300.0)
[2021-10-22 13:05] LABS: ESTIMATED AVERAGE GLUCOSE 263 mg/dL (70-100); HEMOGLOBIN A1c% 10.8 % (4.27-6.07)
== END 2021-10-22 09:03 | disposition home or self-care (01) ==
LOC: LAB 09:02
PROVIDERS: ATTEND Physician Assistant Medical
DX: E11.8 Type 2 diabetes mellitus with unspecified complications (principal)
CPT/HCPCS: 36415; 80048; 82043; 82570; 83036

== ENCOUNTER 2021-12-08 10:43 | Emergency (ER) | payer MEDICAID ==
--- NOTE | 2021-12-08 12:48 | ED Physician Documentation ---
PD HPI BACK PAIN - Stated complaint Stated Complaint: BACK PX - Chief complaint Chief Complaint: Trauma Ch/Bk - History obtained from History obtained from: Patient, Family - History of Present Illness Timing - onset: Last night, Yesterday Timing - duration: Days (1) Timing - details: Abrupt onset, Still present Location: Other (tailbone) Quality: Pain, Sharp Associated symptoms: Other (cant sit without pain). No: Fever, Weakness, Numbness, Incontinent of urine, Unable to urinate, Hematuria, Incontinent of stool Improves with: Rest, Position Contributing factors: Other (fell while playing football yesterday) Similar symptoms before: Has not had sx before Recently seen: Not recently seen - Additional information Additional information: Previously well 31-year-old female was playing football yesterday when she was knocked over and landed directly on her buttocks. She has pain to her buttocks and is unable to sit without pain she is able to stand and walk without difficulty she is able to lay on her stomach without much pain when she tries to lay on her back or sit she has significant pain and she is worried about a fract ure of her tailbone. Review of Systems Constitutional: denies: Fever Throat: denies: Sore throat Respiratory: denies: Cough GI: denies: Vomiting, Diarrhea : denies: Dysuria Skin: denies: Rash Musculoskeletal: reports: Other (sacrum and coccyx pain). denies: Neck pain, Back pain, Extremity pain Neurologic: denies: Generalized weakness, Focal weakness, Numbness PD PAST MEDICAL HISTORY - Past Medical History Cardiovascular: None Respiratory: None Neuro: None Endocrine/Autoimmune: Type 2 diabetes GI: None, Other MEDICAL RECORDS CUSTODIAN: Miscarriage(s) : None HEENT: None Psych: Depression, Anxiety Musculoskeletal: None Derm: None - Past Surgical History Past Surgical History: Yes General: Other /MEDICAL RECORDS CUSTODIAN: section, Tubal ligation HEENT: Myringotomy (tubes) - Present Medications Home Medications: Ambulatory Orders Medication Instructions Recorded Confirmed Blood Sugar Diagnostic [Glucometer 1 each ACHS #120 strip 06/05/18 08/25/20 Strips] Blood-Glucose Meter [Glucometer] 1 each ONCE #1 each 06/05/18 08/25/20 Lancets 1 each ACHS #120 each 06/05/18 08/25/20 metFORMIN [Glucophage] 500 mg PO BIDWM #60 tablet 06/05/18 08/25/20 Acetaminophen [Acetaminophen Extra 1,000 mg PRN 08/25/20 Strength] Ibuprofen 400 mg PRN 08/25/20 Oxycodone HCl/Acetaminophen 1 - 2 each PO Q6H PRN #14 tablet 08/25/20 [Percocet 5-325 mg Tablet] LORazepam [Ativan] 1 mg PO TID PRN #12 tablet 02/09/21 Ondansetron Odt [Zofran] 4 mg TL Q6H PRN #10 tablet 02/09/21 Oxycodone HCl/Acetaminophen 1 - 2 each PO Q6H PRN #14 tablet 12/08/21 [Percocet 5-325 mg Tablet] - Allergies Allergies/Adverse Reactions: Allergies Allergy/AdvReac Type Severity Reaction Status Date / Time cefaclor [From Ceclor] Allergy Unknown Verified 12/08/21 10:56 Penicillins Allergy Unknown Verified 12/08/21 10:56 acetaminophen [From Vicodin] AdvReac Itching Verified 12/08/21 10:56 hydrocodone [From Vicodin] AdvReac Itching Verified 12/08/21 10:56 - Social History Does the pt smoke?: Yes Smoking Status: Current every day smoker Does the pt drink ETOH?: Yes Does the pt have substance abuse?: Yes - Immunizations Immunizations are current?: Yes - POLST Patient has POLST: No PD ED PE NORMAL - Vitals Vital signs reviewed: Yes (Tachycardic and hypertensive) - General General: Alert and oriented X 3, No acute distress, Well developed/nourished, Other (31-year-old female laying on her stomach does not appear to be in pain) - HEENT HEENT: Atraumatic, PERRL, EOMI - Respiratory Respiratory: No respiratory distress - Back Back: No CVA TTP, No spinal TTP, Other (There is specific pain to palpation of the upper sacrum and coccyx. 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 No osseous lesion. If symptoms and/or clinical suspicion for pathology continue, further assessment with repeat plain films, or advanced imaging (e.g., CT, MRI, or bone scan) is recommended for further assessment.), EMP read indepedently, See rad report PD MEDICAL DECISION MAKING - ED course Complexity details: reviewed results, re-evaluated patient, considered differential, d/w patient, d/w family ED course: 31-year-old female with a contusion to the coccyx does not have it evidence of a fracture on plain film. The patient is comfortable if she is laying on her stomach or standing. The patient does appear uncomfortable she is prescribed Percocet for temporary pain control Departure - Departure Disposition: Home, Self Care Clinical Impression: Coccyx contusion Qualifiers: Encounter type: initial encounter Qualified Code(s): S30.0XXA - Contusion of lower back and pelvis, initial encounter Condition: Stable Instructions: ED Contusion Sacrum Coccyx Follow-Up: Anai Edmonds PA-C [Provider Admit Priv/Credential] - Prescriptions: Oxycodone HCl/Acetaminophen [Percocet 5-325 mg Tablet] 1 - 2 each PO Q6H PRN #14 tablet PRN Reason: pain Comments: Jessi, today it looks like you have a contusion to your coccyx and there is no evidence of a fracture on plain films. If you have continued to have severe pain or pain worsens a follow-up with your primary is indicated for repeat films. The expectation is resolution of your pain within 2 weeks.Medication for pain has been E scribed to the community pharmacy here in [place]. Discharge Date/Time: 12/08/21 13:33
--- NOTE | 2021-12-08 12:55 | XRAY Report ---
PROCEDURE: Sacrum/Coccyx INDICATIONS: fall onto buttocks-- it hurts TECHNIQUE: 3 views of the sacrum and coccyx acquired. COMPARISON: None FINDINGS: Bones: No fractures or dislocations. No suspicious bony lesions. Soft tissues: Visualized bowel gas pattern is normal. No suspicious soft tissue densities. IMPRESSION: No acute fracture. No osseous lesion. If symptoms and/or clinical suspicion for pathology continue, f urther assessment with repeat plain films, or advanced imaging (e.g., CT, MRI, or bone scan) is recom mended for further assessment. Reviewed by: Skip Cool MD on 12/08/2021 12:53 PM PDT Approved by: Skip Cool MD on 12/08/2021 12:53 PM PDT Station ID: [id number]
[2021-12-08 13:34] VITALS: BP 128/90
== END 2021-12-08 13:33 | disposition home or self-care (01) ==
LOC: ED 10:43
DX: S30.0XXA Contusion of lower back and pelvis, initial encounter (principal); W03.XXXA Other fall on same level due to collision with another person, initial encounter; Y93.61 Activity, american tackle football; E11.9 Type 2 diabetes mellitus without complications; Z79.4 Long term (current) use of insulin; F17.200 Nicotine dependence, unspecified, uncomplicated
CPT/HCPCS: 99282; 99283

== ENCOUNTER 2022-08-21 18:23 | Outpatient (CLI) | payer MEDICAID ==
--- NOTE | 2022-08-21 20:37 | XRAY Report ---
PROCEDURE: Wrist 3 View LT INDICATIONS: WRIST PAIN, LEFT TECHNIQUE: 3 views of the wrist were acquired. COMPARISON: None. FINDINGS: Bones: No fractures or dislocations. No suspicious bony lesions. Soft tissues: No suspicious soft tissue calcifications. IMPRESSION: 1. No fracture or dislocation. Reviewed by: Andrew Tiwari MD on 08/21/2022 8:36 PM PST Approved by: Andrew Tiwari MD on 08/21/2022 8:36 PM [facility] Station ID: [id number]
== END 2022-08-21 18:24 | disposition home or self-care (01) ==
LOC: DI 18:23
PROVIDERS: ATTEND Family Medicine
DX: M25.532 Pain in left wrist (principal)

== ENCOUNTER 2022-08-22 09:36 | Outpatient (CLI) | payer MEDICAID ==
[2022-08-22 19:11] LABS: ALBUMIN/GLOBULIN RATIO 1.1 (1.0-2.2); BILIRUBIN,TOTAL 0.6 mg/dL (0.2-1.0); CALCIUM 9.1 mg/dL (8.5-10.3); CREATININE 0.6 mg/dL (0.4-1.0); POTASSIUM 4.5 mmol/L (3.5-5.0); TOTAL PROTEIN 7.5 g/dL (6.7-8.2)
[2022-08-22 19:46] LABS: CREATININE,URINE 197.8 mg/dL; MICROALBUM/CREATININE RATIO,UR 9.6 ug/mg (<30.0); MICROALBUMIN,URINE 1.9 mg/dL (0-300.0)
[2022-08-22 21:09] LABS: ESTIMATED AVERAGE GLUCOSE 226 mg/dL (70-100); HEMOGLOBIN A1c% 9.5 % (4.27-6.07)
== END 2022-08-22 09:37 | disposition home or self-care (01) ==
LOC: LAB.N 09:36
PROVIDERS: ATTEND Family Medicine
DX: E11.8 Type 2 diabetes mellitus with unspecified complications (principal)
CPT/HCPCS: 36415; 80053; 82043; 82570; 83036

== ENCOUNTER 2023-05-20 17:49 | Emergency (ER) | payer MEDICAID ==
[2023-05-20 17:59] VITALS: BP 130/69; O2SAT 99
[2023-05-20] MEDS ORDERED: oxyCODONE 5 MG TABLET PO STA (18:43)
--- NOTE | 2023-05-20 18:52 | ED Physician Documentation ---
History of Present Illness - Stated complaint Stated Complaint: RIB INJ/FALL - Chief complaint Chief Complaint: Trauma Ch/Bk - History obtained from History obtained from: Patient - History of Present Illness Timing: Today Pain level max: 0 Pain level now: 0 - Additonal information Additional information: 32-year-old female presents to the emergency department stating that approximately 2 hours ago she fell on her deck and landed on her left ribs and is complaining of rib pain. Worse with movement, nothing makes it better. No shortness of breath. No fevers. No chills. No cough. No congestion. Denies any possibility of . Not breast-feeding. Has not taken anything for pain. No head, neck, back pain. No other injuries. Did not strike her head. 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) : None HEENT: None Psych: Depression, Anxiety Musculoskeletal: None Derm: None - Past Surgical History Past Surgical History: Yes General: Other /KIDNEY PULLER: section, Tubal ligation HEENT: Myringotomy (tubes) - Present Medications Home Medications: Ambulatory Orders Medication Instructions Recorded Confirmed Blood Sugar Diagnostic [Glucometer 1 each ACHS #120 strip 06/05/18 08/25/20 Strips] Blood-Glucose Meter [Glucometer] 1 each ONCE #1 each 06/05/18 08/25/20 Lancets 1 each ACHS #120 each 06/05/18 08/25/20 metFORMIN [Glucophage] 500 mg PO BIDWM #60 tablet 06/05/18 08/25/20 Acetaminophen [Acetaminophen Extra 1,000 mg PRN 08/25/20 Strength] Ibuprofen 400 mg PRN 08/25/20 Oxycodone HCl/Acetaminophen 1 - 2 each PO Q6H PRN #14 tablet 08/25/20 [Percocet 5-325 mg Tablet] LORazepam [Ativan] 1 mg PO TID PRN #12 tablet 02/09/21 Ondansetron Odt [Zofran] 4 mg TL Q6H PRN #10 tablet 02/09/21 Oxycodone HCl/Acetaminophen 1 - 2 each PO Q6H PRN #14 tablet 12/08/21 [Percocet 5-325 mg Tablet] oxyCODONE [Roxicodone] 5 - 10 mg PO Q6H PRN #20 tablet 05/20/23 MDD 6 - Allergies Allergies/Adverse Reactions: Allergies Allergy/AdvReac Type Severity Reaction Status Date / Time cefaclor [From Ceclor] Allergy Unknown Verified 05/20/23 17:58 Penicillins Allergy Unknown Verified 05/20/23 17:58 acetaminophen [From Vicodin] AdvReac Itching Verified 05/20/23 17:58 hydrocodone [From Vicodin] AdvReac Itching Verified 05/20/23 17:58 - Social History Does the pt smoke?: Yes Smoking Status: Current every day smoker Does the pt drink ETOH?: Yes Does the pt have substance abuse?: Yes - Immunizations Immunizations are current?: Yes - POLST Patient has POLST: No PD ED PE NORMAL - Vitals Vital signs reviewed: Yes - General General: Alert and oriented X 3, No acute distress - HEENT HEENT: Atraumatic, PERRL, EOMI, Moist mucous membranes - Neck Neck: Supple, no meningeal sign, No bony TTP - Cardiac Cardiac: RRR, Strong equal pulses - Respiratory Respiratory: No respiratory distress, Clear bilaterally, Other (TTP over the L anterior ribs approx 5-7. no crepitus. no ecchymosis. 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, No motor deficit, No sensory de ficit, Normal speech - Psych Psych: Normal mood, Normal affect Results - Vitals Vitals: Vital Signs - 24 hr 05/20/23 17:55 Temperature 36.9 C Heart Rate 81 Respiratory 15 Rate Blood Pressure 130/69 O2 Saturation 99 Oxygen O2 Source Room air - Rads (name of study) L rib xray Relevant Findings:: Final report received, See rad report PD Medical Decision Making - ED course Complexity details: reviewed results, re-evaluated patient, considered biae ibn, d/w patient ED course: 32-year-old female presents to the emergency department after ground-level fall injuring the left anterior ribs. Possible fifth and sixth rib fractures. Pain well controlled with oxycodone. No hypoxia. No respiratory distress. No crepitus. No pneumothorax. No hemothorax. We will prescribe pain medication for home and have her follow-up with her doctor for further care. Patient counseled regarding signs and symptoms for which I believe and urgent re- evaluation would be necessary. Patient with good understanding of and agreement to plan and is comfortable going home at this time This document was made in part using voice recognition software. While efforts are made to proofread this document, sound alike and grammatical errors may occur. Departure - Departure Disposition: 01 Home, Self Care Clinical Impression: Rib fracture Qualifiers: Encounter type: initial encounter Rib fracture type: multiple ribs Fracture type: closed Laterality: left Qualified Code(s): S22.42XA - Multiple fractures of ribs, left side, initial encounter for closed fracture Condition: Good Instructions: ED Fx Rib Follow-Up: Your,doctor in 1 week [Other] Prescriptions: oxyCODONE [Roxicodone] 5 - 10 mg PO Q6H PRN #20 tablet MDD 6 PRN Reason: pain Comments: You may have fractures of your fifth and sixth ribs on x-ray. We will place you on pain medication for home. Please note that ribs can take several weeks to heal. Please follow-up with your doctor for further care and please return if you worsen. Your prescriptions were sent to [facility] in [place]. I am prescribing a short course of narcotic pain medication for you. These are potentially dangerous and addictive medications that should be used carefully. These medications may constipate you. Take an [id number] stool softener (docusate) twice daily with plenty of water while taking these medications. If you go 24 hours without a bowel movement, take [id number] miralax, per package instructions. Do not drink or drive while taking these medications. If you received narcotic or sedating medications while in the emergency department, do not drive for 24 hours. Store this medication in a safe, secure place and out of reach of children. It is a violation of federal law to give or sell this medication to another person or to use in a manner other than prescribed. The ED will not refill narcotic prescriptions, including prescriptions lost or stolen. To dispose of unwanted medications: 1. [facility] at [address] in [place] has a medication drop box. They accept prescription medications (in pill form) Wednesday through Wednesday 9:00 a.m. to 5:00 p.m. 2. The [facility] [employer] [facility] accepts prescription medications (in pill form only) for disposal year round. Call for more information. 3. Contact the [facility] for the next [facility] sponsored prescription drug collection event. , [phone], or [phone]; Forms: PCP List Discharge Date/Time: 05/20/23 19:22
--- NOTE | 2023-05-20 18:55 | XRAY Report ---
PROCEDURE: Ribs w/PA Chest LT INDICATIONS: trauma TECHNIQUE: 2 views of the left ribs were acquired, along with a single view chest. COMPARISON: None. FINDINGS: Surgical changes and devices: None. Bones and chest wall: Question left anterior fifth and sixth rib fractures. No fractures or dislocati ons. No suspicious bony lesions. Overlying soft tissues appear unremarkable. Lungs and pleura: No pleural effusions or pneumothorax. Lungs appear clear. Mediastinum: Mediastinal contours appear normal. Heart size is normal. IMPRESSION: Possible left anterior fifth and sixth rib fractures. Reviewed by: Zulema Hardy MD on 05/20/2023 6:54 PM PDT Approved by: Zulema Hardy MD on 05/20/2023 6:54 PM PDT Station ID: [id number]
== END 2023-05-20 19:22 | disposition home or self-care (01) ==
LOC: ED 17:49
DX: S22.42XA Multiple fractures of ribs, left side, initial encounter for closed fracture (principal); W19.XXXA Unspecified fall, initial encounter; Y92.008 Other place in unspecified non-institutional (private) residence as the place of occurrence of the external cause; F17.200 Nicotine dependence, unspecified, uncomplicated
CPT/HCPCS: 71101; 99283; A9270